=== PATIENT | male | born 1960 | race Caucasian/White ===

== ENCOUNTER 2016-04-25 11:53 | Inpatient (IN) | payer OTHER ==
[~2016-04-25] VITALS: Ht 170.2 cm; Wt 55.7 kg
[~2016-04-25 11:53] MED LIST: ADDERALL XR 3030 MG PO; ADVAIR HFA120 INHALA IH; AMITRIPTYLINE H25 MG PO; AMITRIPTYLINE H50 MG PO; AMPHETAMINE SAL20 MG PO; ANIMAL CHEWS1 EACH PO; ANTIVERT25 MG PO; ASPIR 8181 M1 PO; ASPIR-LOW81 MG PO; ATARAX,VISTARIL50 MG PO; ATORVASTATIN CA20 MG PO; AUGMENTIN875 MG PO; B-1100 MG PO; BACTRIM,SEPT1 TABLET PO; BENTYL10 MG PO; BUSPAR15 MG PO; BUSPIRONE HCL15 MG PO; CARAFATE1 GM PO; CARAFATE100 MG/ML PO; CEFDINIR300 MG PO; CHLORDIAZEPOXID25 MG PO; CHLORDIAZEPOXIDE5 MG PO; CIALIS5 MG PO; CLEOCIN300 MG PO; CLONIDINE HCL0.1 MG PO; CLONIDINE HCL0.2 MG PO; DICLOFENAC POTA50 MG PO; DICLOFENAC SODI75 MG PO; DOCUSATE SODIU100 MG PO; DOXYCYCLINE HY100 MG PO; DOXYCYCLINE MO100 MG PO; ELAVIL25 MG PO; ELAVIL50 MG PO; ENDOCET 5-3251 EACH PO; FAMOTIDINE20 MG PO; FAMOTIDINE40 MG PO; FLEXERIL10 MG PO; FOLIC ACID1 MG PO; GABAPENTIN100 MG PO; GABAPENTIN600 MG PO; HYDROXYZINE PAM25 MG PO; IMODIUM MS REL1 EACH PO; INDERAL20 MG PO; K-DUR10 MEQ PO; K-DUR20 MEQ PO; KEFLEX500 MG PO; KEPPRA500 MG PO; LEVAQUIN750 MG PO; LEVETIRACETAM500 MG PO; LIBRIUM10 MG PO; LIBRIUM25 MG PO; LIBRIUM5 MG PO; LIDODERM 5% P1 PATCH TD; LOPERAMIDE2 MG PO; MAG-AL PLUS SUS30 ML PO; METHOCARBAMOL500 MG PO; METOCLOPRAMIDE H5 MG PO; METOPROLOL SUC100 MG PO; METOPROLOL SUCC25 MG PO; METOPROLOL SUCC50 MG PO; MIRALAX17 GM PO; MOBIC15 MG PO; NAPROSYN500 MG PO; NEURONTIN400 MG PO; NEURONTIN600 MG PO; NICOTINE PATCH1 EAC2 TD; NORCO 5/3251 TABLET PO; OMEPRAZOLE20 MG PO; OMEPRAZOLE40 M1 PO; ONDANSETRON ODT8 MG PO; OXYCODONE HCL10 MG PO; OXYCODONE-APAP1 EACH PO; PANTOPRAZOLE SO40 MG PO; PERCOCET 10/1 TABLET PO; PERCOCET 5/31 TABLET PO; POTASSIUM CHLO20 ME1 PO; PRAVASTATIN SOD40 MG PO; PRISTIQ100 MG PO; PRISTIQ50 MG PO; PROPRANOLOL HCL20 MG PO; PROPRANOLOL HCL40 MG PO; PROTONIX40 MG PO; THERAGRAN1 TABLET PO; THIAMINE HCL100 MG PO; TRAMADOL HCL50 MG PO; TYLENOL REGULA325 MG PO; Thiamine,Vitamin B1 PO; ULTRAM50 MG PO; VALIUM2 MG PO; VENTOLIN HFA18 GM IH; VICODIN 5-3001 EACH PO; VITAMIN B-1100 MG PO; VOLTAREN50 MG PO; VOLTAREN75 MG PO; VYVANSE40 MG PO; VYVANSE70 MG PO; ZANTAC150 MG PO; ZOFRAN ODT4 MG PO; ZOFRAN ODT8 MG PO
[2016-04-25 15:40] LABS: HEMATOCRIT 40.5 % (38.0-50.0); MCH 29.2 PG (29.0-34.0); MCHC 32.3 G/DL (30.0-36.0); MCV 90.4 FL (86-99); MEAN PLAT.VOLUME 11.1 uM^3 (9.0-12.4); PLATELET COUNT 239 K/uL (156-360); RBC DIS.WIDTH-CV 14.7 % (11.8-14.6); RBC DIS.WIDTH-SD 47.3 % (39-53); RED BLOOD COUNT 4.48 M/uL (4.00-5.50); WHITE BLOOD COUNT 3.9 K/uL (4.1-10.2)
[2016-04-25 15:47] LABS: CHLORIDE 108 mEq/L (99-109); POTASSIUM 3.7 mEq/L (3.7-5.4); SODIUM 142 mEq/L (136-147)
[2016-04-25 15:49] LABS: GLUCOSE 108 mg/dL (70-99)
[2016-04-25 15:50] LABS: ANION GAP 10 MEQ/L (2-14)
[2016-04-25 15:52] LABS: SERUM ETHYL ALCOHOL < 10 mg/dL
[2016-04-25 15:53] LABS: GFR ESTIMATE (CALCULATED) 56 mL/min/
[2016-04-25 15:54] LABS: UREA NITROGEN (BUN) 23 mg/dL (9-23)
[2016-04-25] MEDS ORDERED: GABAPENTIN600 MG PO (22:35)
[2016-04-25] MEDS ORDERED: LEVETIRACETAM500 MG PO (22:35)
[2016-04-25] MEDS ORDERED: AMITRIPTYLINE H50 MG PO (22:35)
[2016-04-25] MEDS ORDERED: CLONIDINE HCL0.1 MG PO (22:35)
[2016-04-26 00:12] LABS: MAGNESIUM 2.1 mg/dL (1.3-2.7)
[2016-04-26 01:12] VITALS: BP 141/92
[2016-04-26 03:56] VITALS: BP 119/77
[2016-04-26 05:24] LABS: HEMATOCRIT 32.6 % (38.0-50.0); MCH 29.4 PG (29.0-34.0); MCHC 32.2 G/DL (30.0-36.0); MCV 91.3 FL (86-99); MEAN PLAT.VOLUME 10.5 uM^3 (9.0-12.4); PLATELET COUNT 203 K/uL (156-360); RBC DIS.WIDTH-CV 14.5 % (11.8-14.6); RBC DIS.WIDTH-SD 46.9 % (39-53); RED BLOOD COUNT 3.57 M/uL (4.00-5.50); WHITE BLOOD COUNT 4.3 K/uL (4.1-10.2)
[2016-04-26 05:26] LABS: CHLORIDE 115 mEq/L (99-109); POTASSIUM 3.4 mEq/L (3.7-5.4); SODIUM 143 mEq/L (136-147)
[2016-04-26 05:28] LABS: GLUCOSE 85 mg/dL (70-99)
[2016-04-26 05:29] LABS: ANION GAP 7 MEQ/L (2-14)
[2016-04-26 05:32] LABS: GFR ESTIMATE (CALCULATED) > 59 mL/min/; UREA NITROGEN (BUN) 15 mg/dL (9-23)
[2016-04-26 08:24] VITALS: BP 138/95
[2016-04-26 09:04] LABS: MAGNESIUM 1.9 mg/dl (1.3-2.7)
[2016-04-26 12:04] VITALS: BP 136/85
[2016-04-26] MEDS ORDERED: ADDERALL XR 3030 MG PO (12:18)
[2016-04-26] MEDS ORDERED: LO-DOSE ASPIRIN81 M1 PO (12:18)
[2016-04-26] MEDS ORDERED: ELAVIL100 MG PO (12:18)
[2016-04-26] MEDS ORDERED: DICLOFENAC SODI75 MG PO (12:18)
[2016-04-26] MEDS ORDERED: PRAVACHOL40 MG PO (12:19)
[2016-04-26 16:08] LABS: ALKALINE PHOSPHATASE 66 IU/L (3-129); DIRECT BILIRUBIN 0.1 mg/dL (0.0-0.3); TOTAL BILIRUBIN 0.3 MG/DL (0.0-1.0)
[2016-04-26 16:31] VITALS: BP 135/85
[2016-04-26 20:44] VITALS: BP 131/88
[2016-04-27 00:38] VITALS: BP 151/69
[2016-04-27 05:16] VITALS: BP 138/74
[2016-04-27 06:52] LABS: HEMATOCRIT 32.9 % (38.0-50.0); MCH 29.9 PG (29.0-34.0); MCHC 31.9 G/DL (30.0-36.0); MCV 93.7 FL (86-99); MEAN PLAT.VOLUME 11.4 uM^3 (9.0-12.4); PLATELET COUNT 192 K/uL (156-360); RBC DIS.WIDTH-CV 14.6 % (11.8-14.6); RBC DIS.WIDTH-SD 49.5 % (39-53); RED BLOOD COUNT 3.51 M/uL (4.00-5.50); WHITE BLOOD COUNT 5.2 K/uL (4.1-10.2)
[2016-04-27 07:15] LABS: ANION GAP 11 MEQ/L (2-14); CHLORIDE 106 MEQ/L (99-109); GFR ESTIMATE (CALCULATED) > 59 mL/min/; GLUCOSE 96 mg/dL (70-99); SAMPLE HEMOLYSIS CHECK 0; SAMPLE ICTERIC CHECK 0; SAMPLE LIPEMIA CHECK 0; SODIUM 143 MEQ/L (136-147); UREA NITROGEN (BUN) 15 mg/dL (9-23)
[2016-04-27 07:21] LABS: POTASSIUM 4.4 MEQ/L (3.7-5.4)
[2016-04-27 07:47] VITALS: BP 136/85
[2016-04-27 16:33] VITALS: BP 124/81
[2016-04-27 23:45] VITALS: BP 131/79
[2016-04-28 06:57] LABS: HEMATOCRIT 33.3 % (38.0-50.0); MCH 29.7 PG (29.0-34.0); MCHC 31.5 G/DL (30.0-36.0); MCV 94.1 FL (86-99); MEAN PLAT.VOLUME 11.9 uM^3 (9.0-12.4); PLATELET COUNT 173 K/uL (156-360); RBC DIS.WIDTH-CV 14.8 % (11.8-14.6); RBC DIS.WIDTH-SD 50.9 % (39-53); RED BLOOD COUNT 3.54 M/uL (4.00-5.50)
[2016-04-28 06:58] LABS: WHITE BLOOD COUNT 7.3 K/uL (4.1-10.2)
[2016-04-28 07:26] LABS: ANION GAP 6 MEQ/L (2-14); CHLORIDE 108 MEQ/L (99-109); GFR ESTIMATE (CALCULATED) > 59 mL/min/; GLUCOSE 109 mg/dL (70-99); SAMPLE HEMOLYSIS CHECK 0; SAMPLE ICTERIC CHECK 0; SAMPLE LIPEMIA CHECK 0; SODIUM 138 MEQ/L (136-147); UREA NITROGEN (BUN) 14 mg/dL (9-23)
[2016-04-28 07:37] VITALS: BP 112/77
[2016-04-28 16:15] VITALS: BP 135/90
[2016-04-28 23:21] VITALS: BP 139/90
[2016-04-29 06:13] LABS: HEMATOCRIT 34.5 % (38.0-50.0); MCH 29.4 PG (29.0-34.0); MCHC 31.9 G/DL (30.0-36.0); MCV 92.2 FL (86-99); MEAN PLAT.VOLUME 11.3 uM^3 (9.0-12.4); PLATELET COUNT 172 K/uL (156-360); RBC DIS.WIDTH-CV 14.5 % (11.8-14.6); RBC DIS.WIDTH-SD 49.1 % (39-53); RED BLOOD COUNT 3.74 M/uL (4.00-5.50); WHITE BLOOD COUNT 8.8 K/uL (4.1-10.2)
[2016-04-29 06:40] LABS: ANION GAP 5 MEQ/L (2-14); CHLORIDE 107 MEQ/L (99-109); GFR ESTIMATE (CALCULATED) > 59 mL/min/; GLUCOSE 100 mg/dL (70-99); POTASSIUM 3.8 MEQ/L (3.7-5.4); SAMPLE HEMOLYSIS CHECK 0; SAMPLE ICTERIC CHECK 0; SAMPLE LIPEMIA CHECK 0; SODIUM 140 MEQ/L (136-147); UREA NITROGEN (BUN) 10 mg/dL (9-23)
[2016-04-29 08:26] VITALS: BP 127/86
[2016-04-29 15:53] VITALS: BP 145/97
[2016-04-29 20:30] VITALS: BP 125/74
[2016-04-30] VITALS: BP 128/74
[2016-04-30 04:00] VITALS: BP 132/78
[2016-04-30 08:26] VITALS: BP 168/95
[2016-04-30 16:25] VITALS: BP 150/91
[2016-04-30] MEDS ORDERED: FOLIC ACID1 MG PO (17:55)
[2016-04-30] MEDS ORDERED: LEVETIRACETAM500 MG PO (17:55)
[2016-04-30] MEDS ORDERED: ENDOCET 5-3251 EACH PO (17:55)
[2016-04-30] MEDS ORDERED: THERAGRAN1 TABLET PO (17:55)
[2016-04-30] MEDS ORDERED: Thiamine,Vitamin B1 PO (17:55)
[2016-04-30] MEDS ORDERED: ATIVAN2 MG PO (17:59)
[2016-04-30] MEDS ORDERED: LO-DOSE ASPIRIN81 M1 PO (18:05)
[2016-04-30] MEDS ORDERED: CLONIDINE HCL0.1 MG PO (18:05)
[2016-04-30] MEDS ORDERED: PRAVACHOL40 MG PO (18:05)
[2016-04-30 23:39] VITALS: BP 152/88
[2016-05-01 08:53] VITALS: BP 143/99
== END 2016-05-01 12:57 | disposition home or self-care (01) | DRG 641 ==
LOC: EME → EDBD 11:53 → EME 11:53 → EDOF 16:34 → 3EAST 16:34
PROVIDERS: Emergency Medicine; Internal Medicine Critical Care Medicine; Physician Assistant
DX: E51.2 Wernicke's encephalopathy (principal); F10.231 Alcohol dependence with withdrawal delirium; R29.6 Repeated falls; R27.0 Ataxia, unspecified; E87.6 Hypokalemia; I25.810 Atherosclerosis of coronary artery bypass graft(s) without angina pectoris; I10 Essential (primary) hypertension; J44.9 Chronic obstructive pulmonary disease, unspecified; F17.200 Nicotine dependence, unspecified, uncomplicated; F33.9 Major depressive disorder, recurrent, unspecified; N17.9 Acute kidney failure, unspecified; L97.829 Non-pressure chronic ulcer of other part of left lower leg with unspecified severity; M86.672 Other chronic osteomyelitis, left ankle and foot; Z89.422 Acquired absence of other left toe(s); F17.210 Nicotine dependence, cigarettes, uncomplicated; F43.10 Post-traumatic stress disorder, unspecified; G62.9 Polyneuropathy, unspecified; E78.5 Hyperlipidemia, unspecified; G40.909 Epilepsy, unspecified, not intractable, without status epilepticus; G89.29 Other chronic pain; M54.9 Dorsalgia, unspecified; T33.832S Superficial frostbite of left toe(s), sequela
CPT/HCPCS: 70450; 80048; 80076; 82140; 83735; 85027; 97530 GP; 99281; 99285; G0480; J1650; J2060; J3360; J3411; J3475; J7030; J7050; J7120

== ENCOUNTER 2016-05-19 10:58 | Emergency (ER) | payer OTHER ==
[~2016-05-19] VITALS: Ht 170.2 cm; Wt 49.8 kg
[~2016-05-19 10:58] MED LIST changes: +ATIVAN2 MG PO; +ELAVIL100 MG PO; +LO-DOSE ASPIRIN81 M1 PO; +PRAVACHOL40 MG PO
[2016-05-19 11:27] LABS: BASOPHIL COUNT 0.1 K/uL (0-0.1); EOSINOPHIL (%) 3.3 % (0-5); EOSINOPHIL COUNT 0.2 K/uL (0-0.3); HEMATOCRIT 40.7 % (38.0-50.0); IMMATURE GRANULOCYTE (%) 0.4 % (0.0-0.7); IMMATURE GRANULOCYTE COUNT 0.2 K/uL; LYMPHOCYTE COUNT 1.6 K/uL (1.0-2.8); MCH 29.9 PG (29.0-34.0); MCHC 33.9 G/DL (30.0-36.0); MCV 88.1 FL (86-99); MEAN PLAT.VOLUME 10.9 uM^3 (9.0-12.4); MONOCYTE (%) 6.3 % (3-12); MONOCYTE COUNT 0.3 K/uL (0-0.8); NEUTROPHIL (%) 58.1 % (45-76); PLATELET COUNT 302 K/uL (156-360); RBC DIS.WIDTH-CV 14.8 % (11.8-14.6); RBC DIS.WIDTH-SD 46.7 % (39-53); RED BLOOD COUNT 4.62 M/uL (4.00-5.50); WHITE BLOOD COUNT 5.1 K/uL (4.1-10.2)
[2016-05-19 11:35] LABS: CHLORIDE 109 mEq/L (99-109); POTASSIUM 3.3 mEq/L (3.7-5.4); SODIUM 145 mEq/L (136-147)
[2016-05-19 11:37] LABS: GLUCOSE 91 mg/dL (70-99)
[2016-05-19 11:38] LABS: ANION GAP 17 MEQ/L (2-14)
[2016-05-19 11:40] LABS: SERUM ETHYL ALCOHOL 150 mg/dL
[2016-05-19 11:41] LABS: GFR ESTIMATE (CALCULATED) > 59 mL/min/
[2016-05-19 11:42] LABS: UREA NITROGEN (BUN) 13 mg/dL (9-23)
[2016-05-19 13:40] LABS: BILIRUBIN NEGATIVE; BLOOD NEGATIVE; COLOR YELLOW ((YELLOW)); GLUCOSE (STRIP) NEGATIVE; KETONES NEGATIVE; LEUKOCYTES NEGATIVE; NITRITE NEGATIVE; PROTEIN (STRIP) NEGATIVE; SPECIFIC GRAVITY 1.009 (1.000-1.030)
[2016-05-19 13:46] LABS: ADD MIUA? NO
[2016-05-19 14:02] LABS: AMPHETAMINE PRESUMPTIVE POSITIVE (500 ng/mL); BARBITURATES NEGATIVE (200 ng/mL); BENZODIAZEPINES NEGATIVE (150 ng/mL); COCAINE NEGATIVE (150 ng/mL); INTERNAL CONTROLS VALID? YES; METHADONE NEGATIVE (200 ng/mL); METHAMPHETAMINE NEGATIVE (500 ng/mL); OPIATES (MORPHINE) NEGATIVE (100 ng/mL); OXYCODONE NEGATIVE (100 ng/mL); PHENCYCLIDINE NEGATIVE (25 ng/mL); PROPOXYPHENE NEGATIVE (300 ng/mL); THC CANNABINOIDS NEGATIVE (50 ng/mL); TRICYCLIC ANTIDEPRESSANTS PRESUMPTIVE POSITIVE (300 ng/mL)
[2016-05-19 14:03] LABS: ADD MEDTOX COMMENT Y
[2016-05-19 14:28] VITALS: BP 119/84
== END 2016-05-19 14:28 | disposition home or self-care (01) ==
LOC: EME → EDBD 10:58 → EME 10:58
PROVIDERS: Emergency Medicine
DX: F41.9 Anxiety disorder, unspecified (principal); F32.9 Major depressive disorder, single episode, unspecified; F10.20 Alcohol dependence, uncomplicated; J43.9 Emphysema, unspecified; J44.9 Chronic obstructive pulmonary disease, unspecified; E78.5 Hyperlipidemia, unspecified; I10 Essential (primary) hypertension; F17.200 Nicotine dependence, unspecified, uncomplicated; Z79.82 Long term (current) use of aspirin; Z95.5 Presence of coronary angioplasty implant and graft; Z88.6 Allergy status to analgesic agent
CPT/HCPCS: 80048; 81003; 84999; 85025; 90839; 99281; 99284; G0480

== ENCOUNTER 2016-06-25 13:22 | Emergency (ER) | payer OTHER ==
[~2016-06-25] VITALS: Ht 177.8 cm; Wt 51.4 kg
[2016-06-25 14:00] LABS: POINT-OF-CARE METER ID UU13113702
[2016-06-25 15:42] LABS: HEMATOCRIT 39.2 % (38.0-50.0); MCH 29.9 PG (29.0-34.0); MCHC 32.1 G/DL (30.0-36.0); MCV 93.1 FL (86-99); MEAN PLAT.VOLUME 10.4 uM^3 (9.0-12.4); PLATELET COUNT 239 K/uL (156-360); RBC DIS.WIDTH-CV 15.1 % (11.8-14.6); RBC DIS.WIDTH-SD 49.3 % (39-53); RED BLOOD COUNT 4.21 M/uL (4.00-5.50); WHITE BLOOD COUNT 5.6 K/uL (4.1-10.2)
[2016-06-25 15:57] LABS: CHLORIDE 107 mEq/L (99-109); POTASSIUM 4.3 mEq/L (3.7-5.4); SODIUM 141 mEq/L (136-147)
[2016-06-25 15:59] LABS: GLUCOSE 83 mg/dL (70-99)
[2016-06-25 16:00] LABS: ANION GAP 9 MEQ/L (2-14)
[2016-06-25 16:02] LABS: SERUM ETHYL ALCOHOL < 10 mg/dL
[2016-06-25 16:03] LABS: GFR ESTIMATE (CALCULATED) > 59 mL/min/; UREA NITROGEN (BUN) 14 mg/dL (9-23)
[2016-06-25 17:35] LABS: ADD MIUA? NO; BILIRUBIN NEGATIVE; BLOOD NEGATIVE; COLOR YELLOW ((YELLOW)); GLUCOSE (STRIP) NEGATIVE; KETONES NEGATIVE; LEUKOCYTES NEGATIVE; NITRITE NEGATIVE; PROTEIN (STRIP) 30; SPECIFIC GRAVITY 1.018 (1.000-1.030); UROBILINOGEN 0.2 MG/DL (0.2-1.0)
[2016-06-25 17:43] LABS: AMPHETAMINE PRESUMPTIVE POSITIVE (500 ng/mL); BARBITURATES NEGATIVE (200 ng/mL); BENZODIAZEPINES NEGATIVE (150 ng/mL); COCAINE NEGATIVE (150 ng/mL); METHADONE NEGATIVE (200 ng/mL); METHAMPHETAMINE NEGATIVE (500 ng/mL); OPIATES (MORPHINE) NEGATIVE (100 ng/mL); OXYCODONE NEGATIVE (100 ng/mL); PHENCYCLIDINE NEGATIVE (25 ng/mL); PROPOXYPHENE NEGATIVE (300 ng/mL); THC CANNABINOIDS NEGATIVE (50 ng/mL); TRICYCLIC ANTIDEPRESSANTS PRESUMPTIVE POSITIVE (300 ng/mL)
[2016-06-25 17:44] LABS: ADD MEDTOX COMMENT Y; INTERNAL CONTROLS VALID? YES
[2016-06-25] MEDS ORDERED: CLONIDINE HCL0.1 MG PO (18:20)
[2016-06-25] MEDS ORDERED: KEPPRA500 MG PO (18:20)
[2016-06-25 18:51] VITALS: BP 147/103
== END 2016-06-25 19:02 | disposition home or self-care (01) ==
LOC: EME → EDBD 13:22 → EME 13:22
PROVIDERS: Emergency Medicine
DX: F10.10 Alcohol abuse, uncomplicated (principal); I10 Essential (primary) hypertension; G40.909 Epilepsy, unspecified, not intractable, without status epilepticus; F15.10 Other stimulant abuse, uncomplicated; J44.9 Chronic obstructive pulmonary disease, unspecified; E78.5 Hyperlipidemia, unspecified; Z87.442 Personal history of urinary calculi; Z95.1 Presence of aortocoronary bypass graft; Z85.038 Personal history of other malignant neoplasm of large intestine; F17.200 Nicotine dependence, unspecified, uncomplicated
CPT/HCPCS: 80048; 81003; 82948; 84999; 85027; 99281; 99285; G0480

== ENCOUNTER 2016-07-18 16:18 | Emergency (ER) | payer OTHER ==
[~2016-07-18] VITALS: Ht 170.2 cm; Wt 56.0 kg
[2016-07-18 17:09] LABS: BASOPHIL COUNT 0.1 K/uL (0-0.1); EOSINOPHIL (%) 1.7 % (0-5); EOSINOPHIL COUNT 0.1 K/uL (0-0.3); HEMATOCRIT 37.8 % (38.0-50.0); IMMATURE GRANULOCYTE (%) 0.6 % (0.0-0.7); INSTRUMENT ABS NEUTROPHIL CT 3.9 K/uL; MCH 29.6 PG (29.0-34.0); MCHC 31.7 G/DL (30.0-36.0); MCV 93.1 FL (86-99); MONOCYTE (%) 4.2 % (3-12); MONOCYTE COUNT 0.2 K/uL (0-0.8); NEUTROPHIL (%) 73.8 % (45-76); NEUTROPHIL COUNT 3.9 K/uL (1.8-6.4); PLATELET COUNT 225 K/uL (156-360); RBC DIS.WIDTH-CV 14.3 % (11.8-14.6); RBC DIS.WIDTH-SD 48.6 % (39-53); RED BLOOD COUNT 4.06 M/uL (4.00-5.50); WHITE BLOOD COUNT 5.2 K/uL (4.1-10.2)
[2016-07-18 17:20] LABS: CHLORIDE 105 mEq/L (99-109); POTASSIUM 3.7 mEq/L (3.7-5.4); SODIUM 138 mEq/L (136-147)
[2016-07-18 17:23] LABS: GLUCOSE 79 mg/dL (70-99)
[2016-07-18 17:24] LABS: ANION GAP 11 MEQ/L (2-14)
[2016-07-18 17:25] LABS: TOTAL BILIRUBIN 0.4 mg/dL (0.0-1.0)
[2016-07-18 17:26] LABS: ALKALINE PHOSPHATASE 74 IU/L (3-129); SERUM ETHYL ALCOHOL < 10 mg/dL
[2016-07-18 17:27] LABS: GFR ESTIMATE (CALCULATED) > 59 mL/min/
[2016-07-18 17:28] LABS: UREA NITROGEN (BUN) 18 mg/dL (9-23)
[2016-07-18 20:35] LABS: AMPHETAMINE PRESUMPTIVE POSITIVE (500 ng/mL); BARBITURATES NEGATIVE (200 ng/mL); BENZODIAZEPINES NEGATIVE (150 ng/mL); COCAINE NEGATIVE (150 ng/mL); INTERNAL CONTROLS VALID? YES; METHADONE NEGATIVE (200 ng/mL); METHAMPHETAMINE NEGATIVE (500 ng/mL); OPIATES (MORPHINE) NEGATIVE (100 ng/mL); OXYCODONE NEGATIVE (100 ng/mL); PHENCYCLIDINE NEGATIVE (25 ng/mL); PROPOXYPHENE NEGATIVE (300 ng/mL); THC CANNABINOIDS NEGATIVE (50 ng/mL); TRICYCLIC ANTIDEPRESSANTS NEGATIVE (300 ng/mL)
[2016-07-18 20:36] LABS: ADD MEDTOX COMMENT Y
[2016-07-18] MEDS ORDERED: LIBRIUM25 MG PO (20:59)
[2016-07-18 21:33] VITALS: BP 143/103
== END 2016-07-18 21:35 | disposition home or self-care (01) ==
LOC: EME 16:18
PROVIDERS: Emergency Medicine
DX: F10.20 Alcohol dependence, uncomplicated (principal); M50.90 Cervical disc disorder, unspecified, unspecified cervical region; R45.1 Restlessness and agitation; R51 Headache; I10 Essential (primary) hypertension; R00.0 Tachycardia, unspecified; Z91.81 History of falling; Z95.1 Presence of aortocoronary bypass graft; F17.200 Nicotine dependence, unspecified, uncomplicated
CPT/HCPCS: 70450; 72125; 80053; 84999; 85025; 99281; 99284; G0480; J3411; J3475; J7030

== ENCOUNTER 2016-07-20 22:04 | Inpatient (IN) | payer OTHER ==
[~2016-07-20] VITALS: Ht 170.2 cm; Wt 52.7 kg
[2016-07-20 23:34] LABS: HEMATOCRIT 38.5 % (38.0-50.0); MCH 30.2 PG (29.0-34.0); MCHC 32.5 G/DL (30.0-36.0); MEAN PLAT.VOLUME 10.7 uM^3 (9.0-12.4); PLATELET COUNT 208 K/uL (156-360); RBC DIS.WIDTH-CV 14.6 % (11.8-14.6); RBC DIS.WIDTH-SD 49.2 % (39-53); RED BLOOD COUNT 4.14 M/uL (4.00-5.50); WHITE BLOOD COUNT 9.8 K/uL (4.1-10.2)
[2016-07-20 23:41] LABS: PROTHROMBIN TIME 10.4 (9.2-11.2); PTT 26.4 (25-32)
[2016-07-20 23:46] LABS: CHLORIDE 108 mEq/L (99-109); POTASSIUM 3.5 mEq/L (3.7-5.4); SODIUM 139 mEq/L (136-147)
[2016-07-20 23:48] LABS: GLUCOSE 90 mg/dL (70-99)
[2016-07-20 23:49] LABS: ANION GAP 11 MEQ/L (2-14)
[2016-07-20 23:50] LABS: TOTAL BILIRUBIN 0.7 mg/dL (0.0-1.0)
[2016-07-20 23:51] LABS: ALKALINE PHOSPHATASE 95 IU/L (3-129); SERUM ETHYL ALCOHOL < 10 mg/dL
[2016-07-20 23:52] LABS: GFR ESTIMATE (CALCULATED) > 59 mL/min/
[2016-07-20 23:53] LABS: UREA NITROGEN (BUN) 22 mg/dL (9-23)
[2016-07-20 23:55] LABS: TOTAL CK 2022 IU/L (1-294)
[2016-07-20 23:56] LABS: ADD MIUA? YES; BILIRUBIN SMALL; BLOOD NEGATIVE; GLUCOSE (STRIP) NEGATIVE; KETONES 20; LEUKOCYTES NEGATIVE; NITRITE NEGATIVE; PROTEIN (STRIP) 30; SPECIFIC GRAVITY 1.028 (1.000-1.030)
[2016-07-20 23:57] LABS: TROP-I INTERPRETATION NEGATIVE; TROPONIN-I < 0.01 ng/mL (0.0-0.30)
[2016-07-21 00:03] LABS: CREATINE KINASE 2022 IU/L (1-294); LIPASE 1 U/L (1.0-51.0)
[2016-07-21 00:12] LABS: AMPHETAMINE PRESUMPTIVE POSITIVE (500 ng/mL); BENZODIAZEPINES PRESUMPTIVE POSITIVE (150 ng/mL); COCAINE NEGATIVE (150 ng/mL); METHAMPHETAMINE NEGATIVE (500 ng/mL); OPIATES (MORPHINE) NEGATIVE (100 ng/mL); PHENCYCLIDINE NEGATIVE (25 ng/mL); THC CANNABINOIDS NEGATIVE (50 ng/mL); TRICYCLIC ANTIDEPRESSANTS PRESUMPTIVE POSITIVE (300 ng/mL)
[2016-07-21 00:13] LABS: ADD MEDTOX COMMENT Y; BARBITURATES NEGATIVE (200 ng/mL); INTERNAL CONTROLS VALID? YES; METHADONE NEGATIVE (200 ng/mL); OXYCODONE NEGATIVE (100 ng/mL); PROPOXYPHENE NEGATIVE (300 ng/mL)
[2016-07-21 00:30] LABS: COLOR DK YELLOW ((YELLOW))
[2016-07-21 00:47] LABS: BACTERIA 1+ /HPF; EPITHELIAL CELLS 1+ /HPF; MUCUS 4+ /LPF; UCUL ADDED? NO; WHITE BLOOD CELLS NONE SEEN /HPF (0-5)
[2016-07-21 00:48] LABS: CASTS PRESENT /LPF
[2016-07-21 01:01] LABS: BENZODIAZEPINES, URINE SCREEN POSITIVE (200 ng/mL)
[2016-07-21 04:28] LABS: C DIFF TOXIN POSITIVE (NEGATIVE)
[2016-07-21 04:32] LABS: PROBE CHECK PASS
[2016-07-21 05:20] VITALS: BP 160/103
[2016-07-21 08:03] VITALS: BP 152/98
[2016-07-21 08:26] VITALS: BP 152/98
[2016-07-21 09:04] LABS: HEMATOCRIT 32.9 % (38.0-50.0); MCH 29.8 PG (29.0-34.0); MCHC 31.3 G/DL (30.0-36.0); MCV 95.1 FL (86-99); MEAN PLAT.VOLUME 11.1 uM^3 (9.0-12.4); PLATELET COUNT 160 K/uL (156-360); RBC DIS.WIDTH-CV 14.8 % (11.8-14.6); RBC DIS.WIDTH-SD 51.6 % (39-53); RED BLOOD COUNT 3.46 M/uL (4.00-5.50); WHITE BLOOD COUNT 8.3 K/uL (4.1-10.2)
[2016-07-21 09:16] LABS: ANION GAP 8 MEQ/L (2-14); CHLORIDE 113 MEQ/L (99-109); GFR ESTIMATE (CALCULATED) > 59 mL/min/; GLUCOSE 75 mg/dL (70-99); MAGNESIUM 1.9 mg/dl (1.3-2.7); POTASSIUM 3.4 MEQ/L (3.7-5.4); SAMPLE HEMOLYSIS CHECK 0; SAMPLE ICTERIC CHECK 0; SAMPLE LIPEMIA CHECK 0; SODIUM 141 MEQ/L (136-147); UREA NITROGEN (BUN) 15 mg/dL (9-23)
[2016-07-21 12:11] LABS: HIV INDEX 0.07; HIV-1/2 AB/AG COMBO Nonreactive
[2016-07-21] MEDS ORDERED: KEPPRA500 MG PO (15:46)
[2016-07-21] MEDS ORDERED: GABAPENTIN600 MG PO (15:47)
[2016-07-21] MEDS ORDERED: ELAVIL100 MG PO (15:47)
[2016-07-21] MEDS ORDERED: CATAPRES0.1 MG PO (15:47)
[2016-07-21] MEDS ORDERED: LIBRIUM25 MG PO (15:47)
[2016-07-21] MEDS ORDERED: ADDERALL XR 3030 MG PO (15:48)
[2016-07-21] MEDS ORDERED: PRISTIQ100 MG PO (15:49)
[2016-07-21] MEDS ORDERED: FOLIC ACID1 MG PO (15:49)
[2016-07-21 16:00] VITALS: BP 155/102
[2016-07-21 18:16] VITALS: BP 130/90
[2016-07-22 00:02] VITALS: BP 160/91
[2016-07-22 06:03] LABS: HEMATOCRIT 31.5 % (38.0-50.0); MCH 29.8 PG (29.0-34.0); MCHC 31.7 G/DL (30.0-36.0); MCV 93.8 FL (86-99); MEAN PLAT.VOLUME 11.3 uM^3 (9.0-12.4); PLATELET COUNT 172 K/uL (156-360); RBC DIS.WIDTH-CV 14.1 % (11.8-14.6); RBC DIS.WIDTH-SD 48.7 % (39-53); RED BLOOD COUNT 3.36 M/uL (4.00-5.50); WHITE BLOOD COUNT 7.8 K/uL (4.1-10.2)
[2016-07-22 06:49] LABS: ANION GAP 7 MEQ/L (2-14); CHLORIDE 109 MEQ/L (99-109); GFR ESTIMATE (CALCULATED) > 59 mL/min/; GLUCOSE 81 mg/dL (70-99); POTASSIUM 3.4 MEQ/L (3.7-5.4); SAMPLE HEMOLYSIS CHECK 0; SAMPLE ICTERIC CHECK 0; SAMPLE LIPEMIA CHECK 0; SODIUM 139 MEQ/L (136-147); TOTAL CK 1318 IU/L (1-294); UREA NITROGEN (BUN) 9 mg/dL (9-23)
[2016-07-22 06:51] LABS: CREATINE KINASE 1318 IU/L (1-294)
[2016-07-22 07:12] LABS: CK-MB 10.7 ng/mL (0.0-4.9)
[2016-07-22 08:15] VITALS: BP 154/80
[2016-07-22 15:36] VITALS: BP 152/84
[2016-07-23 05:45] LABS: HEMATOCRIT 30.5 % (38.0-50.0); MCHC 32.1 G/DL (30.0-36.0); MCV 93.3 FL (86-99); MEAN PLAT.VOLUME 11.5 uM^3 (9.0-12.4); PLATELET COUNT 199 K/uL (156-360); RBC DIS.WIDTH-CV 14.1 % (11.8-14.6); RBC DIS.WIDTH-SD 48.4 % (39-53); RED BLOOD COUNT 3.27 M/uL (4.00-5.50); WHITE BLOOD COUNT 8.1 K/uL (4.1-10.2)
[2016-07-23 07:25] LABS: ANION GAP 9 MEQ/L (2-14); CHLORIDE 107 MEQ/L (99-109); CREATINE KINASE 671 IU/L (1-294); GFR ESTIMATE (CALCULATED) > 59 mL/min/; GLUCOSE 97 mg/dL (70-99); POTASSIUM 3.4 MEQ/L (3.7-5.4); SAMPLE HEMOLYSIS CHECK 0; SAMPLE ICTERIC CHECK 0; SAMPLE LIPEMIA CHECK 0; SODIUM 139 MEQ/L (136-147); UREA NITROGEN (BUN) 10 mg/dL (9-23)
[2016-07-23 08:28] VITALS: BP 150/75
[2016-07-23 12:05] VITALS: BP 150/82
[2016-07-23 16:11] LABS: MAGNESIUM 1.9 mg/dl (1.3-2.7)
[2016-07-23 16:22] VITALS: BP 130/79
[2016-07-23 23:34] VITALS: BP 125/99
[2016-07-24 08:31] VITALS: BP 128/78
[2016-07-24 09:28] LABS: EOSINOPHIL (%) 4.5 % (0-5); EOSINOPHIL COUNT 0.3 K/uL (0-0.3); HEMATOCRIT 35.7 % (38.0-50.0); IMMATURE GRANULOCYTE (%) 0.9 % (0.0-0.7); IMMATURE GRANULOCYTE COUNT 0.1 K/uL; INSTRUMENT ABS NEUTROPHIL CT 3.9 K/uL; MCH 29.4 PG (29.0-34.0); MCHC 31.1 G/DL (30.0-36.0); MCV 94.4 FL (86-99); MEAN PLAT.VOLUME 11.1 uM^3 (9.0-12.4); MONOCYTE (%) 10.3 % (3-12); MONOCYTE COUNT 0.6 K/uL (0-0.8); NEUTROPHIL (%) 67.2 % (45-76); NEUTROPHIL COUNT 3.9 K/uL (1.8-6.4); PLATELET COUNT 204 K/uL (156-360); RBC DIS.WIDTH-CV 14.4 % (11.8-14.6); RED BLOOD COUNT 3.78 M/uL (4.00-5.50); WHITE BLOOD COUNT 5.7 K/uL (4.1-10.2)
[2016-07-24 09:50] LABS: ANION GAP 5 MEQ/L (2-14); CHLORIDE 106 MEQ/L (99-109); CREATINE KINASE 228 IU/L (1-294); GFR ESTIMATE (CALCULATED) > 59 mL/min/; GLUCOSE 133 mg/dL (70-99); POTASSIUM 3.8 MEQ/L (3.7-5.4); SAMPLE HEMOLYSIS CHECK 0; SAMPLE ICTERIC CHECK 0; SAMPLE LIPEMIA CHECK 0; SODIUM 138 MEQ/L (136-147); UREA NITROGEN (BUN) 8 mg/dL (9-23)
[2016-07-24 15:52] VITALS: BP 158/101
[2016-07-25 00:02] VITALS: BP 146/77
[2016-07-25 06:07] LABS: EOSINOPHIL (%) 4.8 % (0-5); EOSINOPHIL COUNT 0.3 K/uL (0-0.3); HEMATOCRIT 35.5 % (38.0-50.0); IMMATURE GRANULOCYTE (%) 1.3 % (0.0-0.7); IMMATURE GRANULOCYTE COUNT 0.1 K/uL; INSTRUMENT ABS NEUTROPHIL CT 4.3 K/uL; LYMPHOCYTE COUNT 1.5 K/uL (1.0-2.8); MCH 29.7 PG (29.0-34.0); MCHC 31.8 G/DL (30.0-36.0); MCV 93.2 FL (86-99); MEAN PLAT.VOLUME 11.4 uM^3 (9.0-12.4); MONOCYTE (%) 10.9 % (3-12); MONOCYTE COUNT 0.8 K/uL (0-0.8); NEUTROPHIL (%) 60.6 % (45-76); NEUTROPHIL COUNT 4.3 K/uL (1.8-6.4); PLATELET COUNT 236 K/uL (156-360); RBC DIS.WIDTH-CV 14.2 % (11.8-14.6); RBC DIS.WIDTH-SD 48.3 % (39-53); RED BLOOD COUNT 3.81 M/uL (4.00-5.50); WHITE BLOOD COUNT 7.1 K/uL (4.1-10.2)
[2016-07-25 06:25] LABS: ANION GAP 7 MEQ/L (2-14); CHLORIDE 105 MEQ/L (99-109); GFR ESTIMATE (CALCULATED) > 59 mL/min/; GLUCOSE 100 mg/dL (70-99); POTASSIUM 3.9 MEQ/L (3.7-5.4); SAMPLE HEMOLYSIS CHECK 0; SAMPLE ICTERIC CHECK 0; SAMPLE LIPEMIA CHECK 0; SODIUM 139 MEQ/L (136-147); UREA NITROGEN (BUN) 12 mg/dL (9-23)
[2016-07-25 08:03] VITALS: BP 138/67
[2016-07-25] MEDS ORDERED: METRONIDAZOLE500 MG PO (10:23)
[2016-07-25] MEDS ORDERED: CLONIDINE HCL0.2 MG PO (10:23)
[2016-07-25] MEDS ORDERED: NICOTINE PATCH1 EAC2 TD (10:23)
[2016-07-25] MEDS ORDERED: PRAZOSIN HCL1 MG PO (10:23)
[2016-07-25 11:11] LABS: HEMATOCRIT 36.6 % (38.0-50.0); MCH 29.7 PG (29.0-34.0); MCHC 31.7 G/DL (30.0-36.0); MCV 93.6 FL (86-99); MEAN PLAT.VOLUME 11.1 uM^3 (9.0-12.4); PLATELET COUNT 255 K/uL (156-360); RBC DIS.WIDTH-CV 14.2 % (11.8-14.6); RBC DIS.WIDTH-SD 49.1 % (39-53); RED BLOOD COUNT 3.91 M/uL (4.00-5.50); WHITE BLOOD COUNT 6.7 K/uL (4.1-10.2)
[2016-07-25 11:21] LABS: CHLORIDE 107 mEq/L (99-109); POTASSIUM 4.3 mEq/L (3.7-5.4); SODIUM 140 mEq/L (136-147)
[2016-07-25 11:23] LABS: GLUCOSE 118 mg/dL (70-99)
[2016-07-25 11:25] LABS: ANION GAP 8 MEQ/L (2-14)
[2016-07-25 11:27] LABS: GFR ESTIMATE (CALCULATED) > 59 mL/min/
[2016-07-25 11:28] LABS: UREA NITROGEN (BUN) 13 mg/dL (9-23)
[2016-07-25 11:36] LABS: TROP-I INTERPRETATION NEGATIVE; TROPONIN-I < 0.01 ng/mL (0.0-0.30)
[2016-07-25 12:06] VITALS: BP 78/36
[2016-07-25 14:36] VITALS: BP 114/78; BP 144/78
[2016-07-25 15:09] LABS: CREATINE KINASE 80 IU/L (1-294); TOTAL CK 80 IU/L (1-294)
[2016-07-25 15:39] LABS: CK-MB 0.9 ng/mL (0.0-4.9)
[2016-07-25 16:15] LABS: ALKALINE PHOSPHATASE 54 IU/L (3-129); ANION GAP 6 MEQ/L (2-14); CHLORIDE 109 MEQ/L (99-109); GFR ESTIMATE (CALCULATED) > 59 mL/min/; GLUCOSE 99 mg/dL (70-99); POTASSIUM 4.5 MEQ/L (3.7-5.4); SAMPLE HEMOLYSIS CHECK 0; SAMPLE ICTERIC CHECK 0; SAMPLE LIPEMIA CHECK 0; SODIUM 141 MEQ/L (136-147); TOTAL BILIRUBIN 0.1 MG/DL (0.0-1.0); UREA NITROGEN (BUN) 13 mg/dL (9-23)
[2016-07-25 17:05] VITALS: BP 128/78
[2016-07-25 20:25] VITALS: BP 143/94
[2016-07-26] VITALS (7 sets, daily range): BP systolic 89–163; BP diastolic 53–83
[2016-07-27 00:16] VITALS: BP 147/79
[2016-07-27 04:29] VITALS: BP 111/75
[2016-07-27 06:19] LABS: ANION GAP 7 MEQ/L (2-14); CHLORIDE 104 MEQ/L (99-109); GFR ESTIMATE (CALCULATED) > 59 mL/min/; GLUCOSE 89 mg/dL (70-99); POTASSIUM 4.6 MEQ/L (3.7-5.4); SAMPLE HEMOLYSIS CHECK 0; SAMPLE ICTERIC CHECK 0; SAMPLE LIPEMIA CHECK 0; SODIUM 138 MEQ/L (136-147)
[2016-07-27 06:20] LABS: UREA NITROGEN (BUN) 21 mg/dL (9-23)
[2016-07-27 06:40] LABS: BASOPHIL COUNT 0.1 K/uL (0-0.1); EOSINOPHIL (%) 4.5 % (0-5); EOSINOPHIL COUNT 0.5 K/uL (0-0.3); HEMATOCRIT 37.1 % (38.0-50.0); IMMATURE GRANULOCYTE (%) 1.4 % (0.0-0.7); IMMATURE GRANULOCYTE COUNT 0.1 K/uL; INSTRUMENT ABS NEUTROPHIL CT 6.6 K/uL; LYMPHOCYTE COUNT 1.7 K/uL (1.0-2.8); MCH 29.4 PG (29.0-34.0); MCHC 31.3 G/DL (30.0-36.0); MCV 93.9 FL (86-99); MEAN PLAT.VOLUME 11.4 uM^3 (9.0-12.4); MONOCYTE (%) 10.5 % (3-12); MONOCYTE COUNT 1.1 K/uL (0-0.8); NEUTROPHIL (%) 66.3 % (45-76); NEUTROPHIL COUNT 6.6 K/uL (1.8-6.4); PLATELET COUNT 272 K/uL (156-360); RBC DIS.WIDTH-CV 14.2 % (11.8-14.6); RBC DIS.WIDTH-SD 49.3 % (39-53); RED BLOOD COUNT 3.95 M/uL (4.00-5.50)
[2016-07-27 07:51] VITALS: BP 133/89
[2016-07-27 15:03] VITALS: BP 130/66
[2016-07-27] MEDS ORDERED: LIBRIUM25 MG PO (16:03)
== END 2016-07-27 19:30 | disposition home or self-care (01) | DRG 70 ==
LOC: EME → EDBD 22:04 → EDOF 07-21 03:09 → 3EAST 07-21 03:09
PROVIDERS: Emergency Medicine; Family Medicine; Physician Assistant; Student in an Organized Health Care Education/Training Program
DX: G93.41 Metabolic encephalopathy (principal); E43 Unspecified severe protein-calorie malnutrition; A04.7 Enterocolitis due to Clostridium difficile; F10.231 Alcohol dependence with withdrawal delirium; M62.82 Rhabdomyolysis; Z68.1 Body mass index [BMI] 19.9 or less, adult; E86.0 Dehydration; E87.6 Hypokalemia; I10 Essential (primary) hypertension; F32.9 Major depressive disorder, single episode, unspecified; E78.5 Hyperlipidemia, unspecified; F43.10 Post-traumatic stress disorder, unspecified; F17.210 Nicotine dependence, cigarettes, uncomplicated; G40.909 Epilepsy, unspecified, not intractable, without status epilepticus; Z90.49 Acquired absence of other specified parts of digestive tract; Z85.038 Personal history of other malignant neoplasm of large intestine
CPT/HCPCS: 70450; 70551; 71010; 72125; 80048; 80048 91; 80053; 80069; 80076; 81003; 82140; 82550; 82553; 82948; 83605; 83690; 83735; 83880; 84484; 84999; 85025; 85027; 85610; 85730; 86703; 87040; 87177; 87329; 87493; 87506; 93005; 99281; 99284; 99285; G0480; J2060; J3411; J3475; J3480; J7030; J7040; J7120; S0030

== ENCOUNTER 2016-08-06 13:46 | Emergency (ER) | payer OTHER ==
[~2016-08-06] VITALS: Ht 170.2 cm; Wt 59.1 kg
[~2016-08-06 13:46] MED LIST changes: +CATAPRES0.1 MG PO; +METRONIDAZOLE500 MG PO; +PRAZOSIN HCL1 MG PO
[2016-08-06 14:59] LABS: ADD MIUA? YES; BILIRUBIN NEGATIVE; BLOOD NEGATIVE; COLOR YELLOW ((YELLOW)); GLUCOSE (STRIP) NEGATIVE; KETONES 5; LEUKOCYTES TRACE; NITRITE NEGATIVE; PROTEIN (STRIP) NEGATIVE; SPECIFIC GRAVITY 1.008 (1.000-1.030); UROBILINOGEN 0.2 MG/DL (0.2-1.0)
[2016-08-06 15:05] LABS: BACTERIA NONE SEEN /HPF; EPITHELIAL CELLS RARE /HPF; MUCUS TRACE /LPF; RED BLOOD CELLS 0-5 /HPF (0-5); WHITE BLOOD CELLS 0-5 /HPF (0-5)
[2016-08-06 15:12] LABS: HEMATOCRIT 39.7 % (38.0-50.0); MCH 29.7 PG (29.0-34.0); MCHC 33.5 G/DL (30.0-36.0); MCV 88.6 FL (86-99); MEAN PLAT.VOLUME 10.8 uM^3 (9.0-12.4); PLATELET COUNT 359 K/uL (156-360); RBC DIS.WIDTH-CV 13.6 % (11.8-14.6); RBC DIS.WIDTH-SD 44.8 % (39-53); RED BLOOD COUNT 4.48 M/uL (4.00-5.50); WHITE BLOOD COUNT 7.3 K/uL (4.1-10.2)
[2016-08-06 15:16] LABS: ADD MEDTOX COMMENT Y; AMPHETAMINE PRESUMPTIVE POSITIVE (500 ng/mL); BARBITURATES NEGATIVE (200 ng/mL); BENZODIAZEPINES PRESUMPTIVE POSITIVE (150 ng/mL); COCAINE NEGATIVE (150 ng/mL); INTERNAL CONTROLS VALID? YES; METHADONE NEGATIVE (200 ng/mL); METHAMPHETAMINE NEGATIVE (500 ng/mL); OPIATES (MORPHINE) NEGATIVE (100 ng/mL); OXYCODONE NEGATIVE (100 ng/mL); PHENCYCLIDINE NEGATIVE (25 ng/mL); PROPOXYPHENE NEGATIVE (300 ng/mL); THC CANNABINOIDS NEGATIVE (50 ng/mL); TRICYCLIC ANTIDEPRESSANTS PRESUMPTIVE POSITIVE (300 ng/mL)
[2016-08-06 15:19] LABS: CHLORIDE 101 mEq/L (99-109); POTASSIUM 4.4 mEq/L (3.7-5.4); SODIUM 132 mEq/L (136-147)
[2016-08-06 15:21] LABS: GLUCOSE 96 mg/dL (70-99)
[2016-08-06 15:22] LABS: ANION GAP 15 MEQ/L (2-14)
[2016-08-06 15:23] LABS: TOTAL BILIRUBIN 0.5 mg/dL (0.0-1.0)
[2016-08-06 15:24] LABS: SERUM ETHYL ALCOHOL 221 mg/dL
[2016-08-06 15:25] LABS: ALKALINE PHOSPHATASE 76 IU/L (3-129); GFR ESTIMATE (CALCULATED) > 59 mL/min/
[2016-08-06 15:26] LABS: UREA NITROGEN (BUN) 18 mg/dL (9-23)
[2016-08-06 15:50] LABS: BENZODIAZEPINES QUANT VALUE 0 NG/ML; BENZODIAZEPINES, URINE SCREEN Negative (200 ng/mL)
[2016-08-06 17:54] VITALS: BP 92/68
== END 2016-08-06 17:55 | disposition home or self-care (01) ==
LOC: EME 13:46
PROVIDERS: Emergency Medicine
DX: F10.129 Alcohol abuse with intoxication, unspecified (principal); Y90.7 Blood alcohol level of 200-239 mg/100 ml; J44.9 Chronic obstructive pulmonary disease, unspecified; E78.5 Hyperlipidemia, unspecified; I10 Essential (primary) hypertension; Z87.442 Personal history of urinary calculi; R56.9 Unspecified convulsions; Z95.1 Presence of aortocoronary bypass graft; Z85.038 Personal history of other malignant neoplasm of large intestine; F17.200 Nicotine dependence, unspecified, uncomplicated
CPT/HCPCS: 80053; 81003; 84999; 85027; 99281; 99284; G0480

== ENCOUNTER 2016-08-13 17:28 | Inpatient (IN) | payer OTHER ==
[~2016-08-13] VITALS: Ht 170.2 cm; Wt 57.7 kg
[2016-08-13 18:00] LABS: ADD MIUA? YES; BILIRUBIN NEGATIVE; BLOOD NEGATIVE; COLOR YELLOW ((YELLOW)); GLUCOSE (STRIP) NEGATIVE; KETONES NEGATIVE; LEUKOCYTES MODERATE; NITRITE NEGATIVE; PROTEIN (STRIP) NEGATIVE; SPECIFIC GRAVITY 1.015 (1.000-1.030)
[2016-08-13 18:11] LABS: AMPHETAMINE NEGATIVE (500 ng/mL); BARBITURATES NEGATIVE (200 ng/mL); BENZODIAZEPINES PRESUMPTIVE POSITIVE (150 ng/mL); COCAINE NEGATIVE (150 ng/mL); INTERNAL CONTROLS VALID? YES; METHADONE NEGATIVE (200 ng/mL); METHAMPHETAMINE NEGATIVE (500 ng/mL); OPIATES (MORPHINE) NEGATIVE (100 ng/mL); OXYCODONE NEGATIVE (100 ng/mL); PHENCYCLIDINE NEGATIVE (25 ng/mL); PROPOXYPHENE NEGATIVE (300 ng/mL); THC CANNABINOIDS NEGATIVE (50 ng/mL); TRICYCLIC ANTIDEPRESSANTS PRESUMPTIVE POSITIVE (300 ng/mL)
[2016-08-13 18:12] LABS: ADD MEDTOX COMMENT Y
[2016-08-13 18:16] LABS: BACTERIA NONE SEEN /HPF; EPITHELIAL CELLS RARE /HPF; MUCUS TRACE /LPF; RED BLOOD CELLS 0-5 /HPF (0-5); UCUL ADDED? YES; WHITE BLOOD CELLS TNTC /HPF (0-5)
[2016-08-13 18:33] LABS: CHLORIDE 109 mEq/L (99-109); POTASSIUM 3.8 mEq/L (3.7-5.4); SODIUM 141 mEq/L (136-147)
[2016-08-13 18:34] LABS: GLUCOSE 83 mg/dL (70-99); INTER. NORMALIZED RATIO 1.1; PROTHROMBIN TIME 10.7 (9.2-11.2); PTT 24.3 (25-32)
[2016-08-13 18:35] LABS: EOSINOPHIL (%) 3.4 % (0-5); EOSINOPHIL COUNT 0.2 K/uL (0-0.3); HEMATOCRIT 30.1 % (38.0-50.0); IMMATURE GRANULOCYTE (%) 0.6 % (0.0-0.7); INSTRUMENT ABS NEUTROPHIL CT 3.3 K/uL; LYMPHOCYTE COUNT 1.3 K/uL (1.0-2.8); MCH 29.5 PG (29.0-34.0); MCHC 31.9 G/DL (30.0-36.0); MONOCYTE (%) 8.9 % (3-12); MONOCYTE COUNT 0.5 K/uL (0-0.8); NEUTROPHIL COUNT 3.3 K/uL (1.8-6.4); RBC DIS.WIDTH-CV 14.3 % (11.8-14.6); RBC DIS.WIDTH-SD 48.1 % (39-53); WHITE BLOOD COUNT 5.3 K/uL (4.1-10.2)
[2016-08-13 18:36] LABS: ANION GAP 7 MEQ/L (2-14)
[2016-08-13 18:38] LABS: GFR ESTIMATE (CALCULATED) > 59 mL/min/; SERUM ETHYL ALCOHOL < 10 mg/dL
[2016-08-13 18:39] LABS: UREA NITROGEN (BUN) 13 mg/dL (9-23)
[2016-08-13 18:43] LABS: TROP-I INTERPRETATION NEGATIVE; TROPONIN-I < 0.01 ng/mL (0.0-0.30)
[2016-08-13 18:46] LABS: BENZODIAZEPINES, URINE SCREEN POSITIVE (200 ng/mL)
[2016-08-13 19:11] LABS: MCV 92.6 FL (86-99); RED BLOOD COUNT 3.25 M/uL (4.00-5.50)
[2016-08-13 19:15] LABS: PLATELET CLUMPS PRESENT - PLATELET COUNT APPEARS ADQ.; PLATELET COUNT UNABLE TO REPORT K/uL (156-360)
[2016-08-13 23:09] VITALS: BP 134/88
[2016-08-14 01:57] LABS: METH RESISTANT S AUREUS PCR POSITIVE (NEGATIVE); PROBE CHECK PASS
[2016-08-14 04:45] VITALS: BP 122/77
[2016-08-14 07:51] LABS: FERRITIN 14 NG/ML (22-322)
[2016-08-14 08:28] LABS: HEMATOCRIT 29.3 % (38.0-50.0); MCH 30.1 PG (29.0-34.0); MCHC 31.7 G/DL (30.0-36.0); MCV 94.8 FL (86-99); MEAN PLAT.VOLUME 11.6 uM^3 (9.0-12.4); RBC DIS.WIDTH-CV 14.6 % (11.8-14.6); RBC DIS.WIDTH-SD 51.1 % (39-53); RED BLOOD COUNT 3.09 M/uL (4.00-5.50)
[2016-08-14 08:30] LABS: PLATELET COUNT 171 K/uL (156-360); WHITE BLOOD COUNT 3.7 K/uL (4.1-10.2)
[2016-08-14 08:39] LABS: ANION GAP 6 MEQ/L (2-14); CHLORIDE 111 MEQ/L (99-109); GFR ESTIMATE (CALCULATED) > 59 mL/min/; SAMPLE HEMOLYSIS CHECK 0; SAMPLE ICTERIC CHECK 0; SAMPLE LIPEMIA CHECK 0; SODIUM 141 MEQ/L (136-147); UREA NITROGEN (BUN) 10 mg/dL (9-23)
[2016-08-14 08:41] LABS: GLUCOSE 152 mg/dL (70-99)
[2016-08-14 09:25] VITALS: BP 136/91
[2016-08-14 12:14] VITALS: BP 134/83
[2016-08-14 19:23] VITALS: BP 136/82
[2016-08-14 22:57] VITALS: BP 152/106
[2016-08-15 04:04] VITALS: BP 124/93
[2016-08-15 06:22] LABS: HEMATOCRIT 33.6 % (38.0-50.0); MCH 29.2 PG (29.0-34.0); MCHC 31.3 G/DL (30.0-36.0); MCV 93.6 FL (86-99); MEAN PLAT.VOLUME 11.7 uM^3 (9.0-12.4); PLATELET COUNT 212 K/uL (156-360); RBC DIS.WIDTH-CV 14.3 % (11.8-14.6); RED BLOOD COUNT 3.59 M/uL (4.00-5.50)
[2016-08-15 06:24] LABS: ANION GAP 7 MEQ/L (2-14); CHLORIDE 106 MEQ/L (99-109); GFR ESTIMATE (CALCULATED) > 59 mL/min/; GLUCOSE 104 mg/dL (70-99); POTASSIUM 4.1 MEQ/L (3.7-5.4); SAMPLE HEMOLYSIS CHECK 0; SAMPLE ICTERIC CHECK 0; SAMPLE LIPEMIA CHECK 0; SODIUM 140 MEQ/L (136-147); UREA NITROGEN (BUN) 12 mg/dL (9-23)
[2016-08-15 06:28] LABS: WHITE BLOOD COUNT 5.3 K/uL (4.1-10.2)
[2016-08-15 07:39] VITALS: BP 152/94
[2016-08-15 11:21] VITALS: BP 142/68
[2016-08-15] MEDS ORDERED: MACROBID100 MG PO (13:16)
[2016-08-15] MEDS ORDERED: LEVETIRACETAM750 MG PO (13:16)
[2016-08-15] MEDS ORDERED: GABAPENTIN600 MG PO (13:50)
[2016-08-15] MEDS ORDERED: AMITRIPTYLINE100 MG PO (13:51)
[2016-08-15] MEDS ORDERED: PRISTIQ100 MG PO (13:51)
[2016-08-15] MEDS ORDERED: CLONIDINE HCL0.2 MG PO ×2 (13:52→14:02)
[2016-08-15] MEDS ORDERED: LIBRIUM25 MG PO (13:52)
[2016-08-15] MEDS ORDERED: PRAZOSIN HCL1 MG PO (13:52)
[2016-08-15] MEDS ORDERED: NICOTINE PATCH1 EAC2 TD (13:53)
[2016-08-15] MEDS ORDERED: ADDERALL XR 3030 MG PO ×2 (13:53→14:02)
[2016-08-15] MEDS ORDERED: KEPPRA500 MG PO (13:54)
== END 2016-08-15 14:59 | disposition home or self-care (01) | DRG 918 ==
LOC: EME 17:28 → EDOF 21:34 → 5WEST 22:52 → 5SOUTH 08-14 10:00 → 5WEST 08-14 10:00 → 5SOUTH 08-14 16:11
PROVIDERS: Emergency Medicine; Internal Medicine; Physician Assistant Medical
DX: T42.4X1A Poisoning by benzodiazepines, accidental (unintentional), initial encounter (principal); N39.0 Urinary tract infection, site not specified; A04.7 Enterocolitis due to Clostridium difficile; G40.909 Epilepsy, unspecified, not intractable, without status epilepticus; F10.239 Alcohol dependence with withdrawal, unspecified; Y90.0 Blood alcohol level of less than 20 mg/100 ml; I10 Essential (primary) hypertension; J44.9 Chronic obstructive pulmonary disease, unspecified; I25.10 Atherosclerotic heart disease of native coronary artery without angina pectoris; F17.210 Nicotine dependence, cigarettes, uncomplicated; Z95.1 Presence of aortocoronary bypass graft; Z85.038 Personal history of other malignant neoplasm of large intestine
CPT/HCPCS: 70450; 71010; 80048; 81003; 82607; 82728; 82746; 83735; 84484; 84999; 85025; 85027; 85610; 85730; 87040; 87086; 87641; 93005; 99281; 99285; G0378; G0480; J0696; J1650; J3411; J7030; J7050

== ENCOUNTER 2016-09-24 14:28 | Inpatient (IN) | payer OTHER ==
[~2016-09-24] VITALS: Ht 170.2 cm; Wt 56.0 kg
[~2016-09-24 14:28] MED LIST changes: +AMITRIPTYLINE100 MG PO; +LEVETIRACETAM750 MG PO; +MACROBID100 MG PO
[2016-09-24 16:12] LABS: BASOPHIL COUNT 0.1 K/uL (0-0.1); EOSINOPHIL (%) 2.3 % (0-5); EOSINOPHIL COUNT 0.1 K/uL (0-0.3); HEMATOCRIT 38.6 % (38.0-50.0); IMMATURE GRANULOCYTE (%) 0.4 % (0.0-0.7); LYMPHOCYTE COUNT 1.2 K/uL (1.0-2.8); MCH 28.9 PG (29.0-34.0); MCHC 32.1 G/DL (30.0-36.0); MONOCYTE (%) 6.8 % (3-12); MONOCYTE COUNT 0.3 K/uL (0-0.8); NEUTROPHIL (%) 63.6 % (45-76); RBC DIS.WIDTH-CV 14.6 % (11.8-14.6); RBC DIS.WIDTH-SD 48.4 % (39-53); RED BLOOD COUNT 4.29 M/uL (4.00-5.50); WHITE BLOOD COUNT 4.7 K/uL (4.1-10.2)
[2016-09-24 16:21] LABS: CHLORIDE 108 mEq/L (99-109); POTASSIUM 3.8 mEq/L (3.7-5.4); SODIUM 139 mEq/L (136-147)
[2016-09-24 16:23] LABS: GLUCOSE 82 mg/dL (70-99)
[2016-09-24 16:24] LABS: ADD MIUA? NO; BILIRUBIN NEGATIVE; BLOOD NEGATIVE; COLOR YELLOW ((YELLOW)); GLUCOSE (STRIP) NEGATIVE; KETONES NEGATIVE; LEUKOCYTES NEGATIVE; NITRITE NEGATIVE; PROTEIN (STRIP) NEGATIVE; SPECIFIC GRAVITY 1.017 (1.000-1.030); UCUL ADDED? NO; UROBILINOGEN 0.2 MG/DL (0.2-1.0)
[2016-09-24 16:24] LABS: ANION GAP 9 MEQ/L (2-14)
[2016-09-24 16:25] LABS: TOTAL BILIRUBIN 0.4 mg/dL (0.0-1.0)
[2016-09-24 16:26] LABS: SERUM ETHYL ALCOHOL 132 mg/dL
[2016-09-24 16:27] LABS: ALKALINE PHOSPHATASE 62 IU/L (3-129); GFR ESTIMATE (CALCULATED) > 59 mL/min/
[2016-09-24 16:28] LABS: UREA NITROGEN (BUN) 18 mg/dL (9-23)
[2016-09-24 16:33] LABS: TROP-I INTERPRETATION NEGATIVE; TROPONIN-I < 0.01 ng/mL (0.0-0.30)
[2016-09-24 17:46] LABS: MEAN PLAT.VOLUME 11.1 uM^3 (9.0-12.4); PLAT.SUFFICIENCY ADEQUATE; PLATELET COUNT 153 K/uL (156-360)
[2016-09-24 21:14] LABS: MAGNESIUM 2.2 mg/dL (1.3-2.7)
[2016-09-24 23:15] VITALS: BP 178/18
[2016-09-24 23:23] LABS: TROP-I INTERPRETATION NEGATIVE; TROPONIN-I < 0.01 ng/mL (0.0-0.30)
[2016-09-25 06:26] LABS: TROP-I INTERPRETATION NEGATIVE; TROPONIN-I < 0.01 ng/mL (0.0-0.30)
[2016-09-25 06:51] LABS: HEMATOCRIT 40.7 % (38.0-50.0); MCH 29.2 PG (29.0-34.0); MCHC 32.2 G/DL (30.0-36.0); MCV 90.8 FL (86-99); MEAN PLAT.VOLUME 11.5 uM^3 (9.0-12.4); PLATELET COUNT 213 K/uL (156-360); RBC DIS.WIDTH-CV 14.3 % (11.8-14.6); RBC DIS.WIDTH-SD 48.1 % (39-53); RED BLOOD COUNT 4.48 M/uL (4.00-5.50); WHITE BLOOD COUNT 5.6 K/uL (4.1-10.2)
[2016-09-25 07:19] LABS: ANION GAP 10 MEQ/L (2-14); CHLORIDE 101 MEQ/L (99-109); GFR ESTIMATE (CALCULATED) > 59 mL/min/; POTASSIUM 3.1 MEQ/L (3.7-5.4); SAMPLE HEMOLYSIS CHECK 0; SAMPLE ICTERIC CHECK 0; SAMPLE LIPEMIA CHECK 0; SODIUM 136 MEQ/L (136-147); UREA NITROGEN (BUN) 17 mg/dL (9-23)
[2016-09-25 07:25] LABS: GLUCOSE 105 mg/dL (70-99)
[2016-09-25 07:27] LABS: INTER. NORMALIZED RATIO 1.1; PROTHROMBIN TIME 10.8 (9.2-11.2)
[2016-09-25 08:17] VITALS: BP 117/70
[2016-09-25 10:00] LABS: ERTH.SED.RATE 5 MM/HR (0-20)
[2016-09-25 12:36] VITALS: BP 158/90
[2016-09-25 15:40] VITALS: BP 160/90
[2016-09-25 23:38] VITALS: BP 165/100
[2016-09-26] VITALS (8 sets, daily range): BP systolic 126–165; BP diastolic 63–100
[2016-09-26 05:34] LABS: BASOPHIL COUNT 0.1 K/uL (0-0.1); EOSINOPHIL (%) 5.3 % (0-5); EOSINOPHIL COUNT 0.3 K/uL (0-0.3); HEMATOCRIT 37.1 % (38.0-50.0); IMMATURE GRANULOCYTE (%) 0.2 % (0.0-0.7); INSTRUMENT ABS NEUTROPHIL CT 3.2 K/uL; LYMPHOCYTE COUNT 1.2 K/uL (1.0-2.8); MCH 29.5 PG (29.0-34.0); MCHC 32.1 G/DL (30.0-36.0); MCV 92.1 FL (86-99); MEAN PLAT.VOLUME 11.2 uM^3 (9.0-12.4); MONOCYTE (%) 7.7 % (3-12); MONOCYTE COUNT 0.4 K/uL (0-0.8); NEUTROPHIL (%) 62.8 % (45-76); NEUTROPHIL COUNT 3.2 K/uL (1.8-6.4); PLATELET COUNT 172 K/uL (156-360); RBC DIS.WIDTH-CV 14.3 % (11.8-14.6); RBC DIS.WIDTH-SD 48.8 % (39-53); RED BLOOD COUNT 4.03 M/uL (4.00-5.50); WHITE BLOOD COUNT 5.1 K/uL (4.1-10.2)
[2016-09-26 06:05] LABS: ANION GAP 6 MEQ/L (2-14); CHLORIDE 108 MEQ/L (99-109); GFR ESTIMATE (CALCULATED) > 59 mL/min/; GLUCOSE 102 mg/dL (70-99); SAMPLE HEMOLYSIS CHECK 0; SAMPLE ICTERIC CHECK 0; SAMPLE LIPEMIA CHECK 0; SODIUM 137 MEQ/L (136-147); UREA NITROGEN (BUN) 13 mg/dL (9-23)
[2016-09-26 06:06] LABS: POTASSIUM 4.2 MEQ/L (3.7-5.4)
[2016-09-27 06:35] LABS: EOSINOPHIL (%) 5.7 % (0-5); EOSINOPHIL COUNT 0.3 K/uL (0-0.3); IMMATURE GRANULOCYTE (%) 0.7 % (0.0-0.7); INSTRUMENT ABS NEUTROPHIL CT 2.3 K/uL; LYMPHOCYTE COUNT 1.3 K/uL (1.0-2.8); MCH 29.6 PG (29.0-34.0); MCHC 31.9 G/DL (30.0-36.0); MCV 92.5 FL (86-99); MEAN PLAT.VOLUME 11.7 uM^3 (9.0-12.4); MONOCYTE (%) 11.6 % (3-12); MONOCYTE COUNT 0.5 K/uL (0-0.8); NEUTROPHIL (%) 52.5 % (45-76); NEUTROPHIL COUNT 2.3 K/uL (1.8-6.4); PLATELET COUNT 183 K/uL (156-360); RBC DIS.WIDTH-CV 14.6 % (11.8-14.6); RBC DIS.WIDTH-SD 49.1 % (39-53); RED BLOOD COUNT 3.89 M/uL (4.00-5.50); WHITE BLOOD COUNT 4.4 K/uL (4.1-10.2)
[2016-09-27 07:07] LABS: ANION GAP 3 MEQ/L (2-14); CHLORIDE 108 MEQ/L (99-109); GFR ESTIMATE (CALCULATED) > 59 mL/min/; GLUCOSE 101 mg/dL (70-99); POTASSIUM 4.2 MEQ/L (3.7-5.4); SAMPLE HEMOLYSIS CHECK 0; SAMPLE ICTERIC CHECK 0; SAMPLE LIPEMIA CHECK 0; SODIUM 139 MEQ/L (136-147); UREA NITROGEN (BUN) 12 mg/dL (9-23)
[2016-09-27 07:18] VITALS: BP 128/59
[2016-09-27 12:00] VITALS: BP 140/98
[2016-09-27 15:59] VITALS: BP 125/90
[2016-09-27 23:32] VITALS: BP 133/84
[2016-09-28 06:08] LABS: EOSINOPHIL (%) 6.9 % (0-5); EOSINOPHIL COUNT 0.3 K/uL (0-0.3); HEMATOCRIT 34.2 % (38.0-50.0); IMMATURE GRANULOCYTE (%) 0.7 % (0.0-0.7); INSTRUMENT ABS NEUTROPHIL CT 2.1 K/uL; LYMPHOCYTE COUNT 1.4 K/uL (1.0-2.8); MCH 30.1 PG (29.0-34.0); MCHC 32.2 G/DL (30.0-36.0); MCV 93.7 FL (86-99); MEAN PLAT.VOLUME 11.8 uM^3 (9.0-12.4); MONOCYTE (%) 10.8 % (3-12); MONOCYTE COUNT 0.5 K/uL (0-0.8); NEUTROPHIL (%) 48.5 % (45-76); NEUTROPHIL COUNT 2.1 K/uL (1.8-6.4); PLATELET COUNT 167 K/uL (156-360); RBC DIS.WIDTH-CV 14.5 % (11.8-14.6); RBC DIS.WIDTH-SD 50.4 % (39-53); RED BLOOD COUNT 3.65 M/uL (4.00-5.50); WHITE BLOOD COUNT 4.4 K/uL (4.1-10.2)
[2016-09-28 06:30] LABS: ANION GAP 4 MEQ/L (2-14); CHLORIDE 108 MEQ/L (99-109); GFR ESTIMATE (CALCULATED) > 59 mL/min/; GLUCOSE 99 mg/dL (70-99); POTASSIUM 4.1 MEQ/L (3.7-5.4); SAMPLE HEMOLYSIS CHECK 0; SAMPLE ICTERIC CHECK 0; SAMPLE LIPEMIA CHECK 0; SODIUM 138 MEQ/L (136-147); UREA NITROGEN (BUN) 14 mg/dL (9-23)
[2016-09-28 06:55] VITALS: BP 142/86
[2016-09-28 14:50] VITALS: BP 129/83
[2016-09-28 23:58] VITALS: BP 155/102
[2016-09-29 06:06] LABS: EOSINOPHIL COUNT 0.3 K/uL (0-0.3); IMMATURE GRANULOCYTE (%) 0.5 % (0.0-0.7); INSTRUMENT ABS NEUTROPHIL CT 6.4 K/uL; LYMPHOCYTE COUNT 1.4 K/uL (1.0-2.8); MCH 30.3 PG (29.0-34.0); MCHC 32.5 G/DL (30.0-36.0); MCV 93.3 FL (86-99); MEAN PLAT.VOLUME 11.5 uM^3 (9.0-12.4); MONOCYTE (%) 7.2 % (3-12); MONOCYTE COUNT 0.6 K/uL (0-0.8); NEUTROPHIL (%) 73.1 % (45-76); NEUTROPHIL COUNT 6.4 K/uL (1.8-6.4); PLATELET COUNT 163 K/uL (156-360); RBC DIS.WIDTH-CV 14.2 % (11.8-14.6); RBC DIS.WIDTH-SD 48.8 % (39-53); RED BLOOD COUNT 3.86 M/uL (4.00-5.50); WHITE BLOOD COUNT 8.7 K/uL (4.1-10.2)
[2016-09-29 06:19] LABS: ANION GAP 7 MEQ/L (2-14); CHLORIDE 106 MEQ/L (99-109); GFR ESTIMATE (CALCULATED) > 59 mL/min/; GLUCOSE 97 mg/dL (70-99); POTASSIUM 4.1 MEQ/L (3.7-5.4); SAMPLE HEMOLYSIS CHECK 0; SAMPLE ICTERIC CHECK 0; SAMPLE LIPEMIA CHECK 0; SODIUM 138 MEQ/L (136-147); UREA NITROGEN (BUN) 15 mg/dL (9-23)
[2016-09-29 06:49] VITALS: BP 158/104
[2016-09-29 09:12] VITALS: BP 138/83
[2016-09-29 15:31] VITALS: BP 131/87
[2016-09-29 23:30] VITALS: BP 142/87
[2016-09-30 07:02] LABS: BASOPHIL COUNT 0.1 K/uL (0-0.1); EOSINOPHIL (%) 2.9 % (0-5); EOSINOPHIL COUNT 0.3 K/uL (0-0.3); HEMATOCRIT 33.7 % (38.0-50.0); IMMATURE GRANULOCYTE (%) 0.6 % (0.0-0.7); IMMATURE GRANULOCYTE COUNT 0.1 K/uL; INSTRUMENT ABS NEUTROPHIL CT 7.6 K/uL; LYMPHOCYTE COUNT 1.3 K/uL (1.0-2.8); MCH 29.5 PG (29.0-34.0); MCV 92.1 FL (86-99); MONOCYTE (%) 8.2 % (3-12); MONOCYTE COUNT 0.8 K/uL (0-0.8); NEUTROPHIL COUNT 7.6 K/uL (1.8-6.4); PLATELET COUNT 173 K/uL (156-360); RBC DIS.WIDTH-CV 14.4 % (11.8-14.6); RBC DIS.WIDTH-SD 48.6 % (39-53); RED BLOOD COUNT 3.66 M/uL (4.00-5.50); WHITE BLOOD COUNT 10.1 K/uL (4.1-10.2)
[2016-09-30 07:07] VITALS: BP 135/94
[2016-09-30 07:33] LABS: ANION GAP 7 MEQ/L (2-14); CHLORIDE 104 MEQ/L (99-109); GFR ESTIMATE (CALCULATED) > 59 mL/min/; GLUCOSE 82 mg/dL (70-99); POTASSIUM 3.9 MEQ/L (3.7-5.4); SAMPLE HEMOLYSIS CHECK 0; SAMPLE ICTERIC CHECK 0; SAMPLE LIPEMIA CHECK 0; SODIUM 139 MEQ/L (136-147); UREA NITROGEN (BUN) 12 mg/dL (9-23)
[2016-09-30] MEDS ORDERED: NICOTINE PATCH1 EAC2 TD (12:42)
[2016-09-30] MEDS ORDERED: PANTOPRAZOLE SO40 MG PO (12:43)
[2016-09-30] MEDS ORDERED: ACIDOPHILUS LA1 EACH PO (12:43)
[2016-09-30] MEDS ORDERED: FOLIC ACID1 MG PO (12:43)
[2016-09-30] MEDS ORDERED: THIAMINE HCL100 MG PO (12:44)
[2016-09-30] MEDS ORDERED: THERAGRAN1 TABLET PO (12:44)
[2016-09-30] MEDS ORDERED: ENDOCET 5-3251 EACH PO (12:48)
[2016-09-30] MEDS ORDERED: BACTRIM,SEPT1 TABLET PO (13:06)
[2016-09-30] MEDS ORDERED: GABAPENTIN600 MG PO (13:42)
[2016-09-30] MEDS ORDERED: PRISTIQ100 MG PO (13:42)
[2016-09-30] MEDS ORDERED: AMITRIPTYLINE100 MG PO (13:42)
[2016-09-30] MEDS ORDERED: ADDERALL XR 3030 MG PO (13:43)
== END 2016-09-30 16:13 | disposition home health service (06) | DRG 540 ==
LOC: EME 14:28 → EDOF 20:48 → 5EAST 21:22 → EDOF 21:22 → 5EAST 23:25
PROVIDERS: Emergency Medicine; Internal Medicine
DX: M86.172 Other acute osteomyelitis, left ankle and foot (principal); Z53.20 Procedure and treatment not carried out because of patient's decision for unspecified reasons; K29.70 Gastritis, unspecified, without bleeding; M54.9 Dorsalgia, unspecified; F10.239 Alcohol dependence with withdrawal, unspecified; Y90.6 Blood alcohol level of 120-199 mg/100 ml; E78.5 Hyperlipidemia, unspecified; I10 Essential (primary) hypertension; K21.9 Gastro-esophageal reflux disease without esophagitis; J44.9 Chronic obstructive pulmonary disease, unspecified; F43.10 Post-traumatic stress disorder, unspecified; F90.9 Attention-deficit hyperactivity disorder, unspecified type; G40.909 Epilepsy, unspecified, not intractable, without status epilepticus; G43.909 Migraine, unspecified, not intractable, without status migrainosus; F17.210 Nicotine dependence, cigarettes, uncomplicated; T33.831S Superficial frostbite of right toe(s), sequela; T33.832S Superficial frostbite of left toe(s), sequela; Z91.19 Patient's noncompliance with other medical treatment and regimen; Z85.038 Personal history of other malignant neoplasm of large intestine; Z90.49 Acquired absence of other specified parts of digestive tract; Z86.14 Personal history of Methicillin resistant Staphylococcus aureus infection; Z86.19 Personal history of other infectious and parasitic diseases; Z89.411 Acquired absence of right great toe; Z89.421 Acquired absence of other right toe(s)
CPT/HCPCS: 71020; 73630; 73720; 74176; 80048; 80053; 80202; 81003; 83605; 83735; 84484; 85025; 85027; 85610; 85651; 93005; 99281; 99285; G0480; J0744; J1650; J1885; J2060; J2405; J3370; J7042

== ENCOUNTER 2016-10-24 06:09 | Emergency (ER) | payer OTHER ==
[~2016-10-24] VITALS: Ht 170.2 cm; Wt 54.2 kg
[~2016-10-24 06:09] MED LIST changes: +ACIDOPHILUS LA1 EACH PO
[2016-10-24 07:31] LABS: HEMATOCRIT 41.5 % (38.0-50.0); MCH 28.5 PG (29.0-34.0); MCHC 32.5 G/DL (30.0-36.0); MCV 87.6 FL (86-99); MEAN PLAT.VOLUME 10.8 uM^3 (9.0-12.4); PLATELET COUNT 283 K/uL (156-360); RBC DIS.WIDTH-CV 15.7 % (11.8-14.6); RBC DIS.WIDTH-SD 50.4 % (39-53); RED BLOOD COUNT 4.74 M/uL (4.00-5.50); WHITE BLOOD COUNT 5.8 K/uL (4.1-10.2)
[2016-10-24 09:55] LABS: CHLORIDE 99 mEq/L (99-109); POTASSIUM 4.2 mEq/L (3.7-5.4); SODIUM 136 mEq/L (136-147)
[2016-10-24 09:58] LABS: GLUCOSE 106 mg/dL (70-99)
[2016-10-24 09:59] LABS: ANION GAP 13 MEQ/L (2-14)
[2016-10-24 10:01] LABS: ALKALINE PHOSPHATASE 97 IU/L (3-129); GFR ESTIMATE (CALCULATED) > 59 mL/min/
[2016-10-24 10:02] LABS: UREA NITROGEN (BUN) 16 mg/dL (9-23)
[2016-10-24 10:05] LABS: LIPASE 10 U/L (1.0-51.0)
[2016-10-24] MEDS ORDERED: ZOFRAN ODT4 MG PO (10:17)
[2016-10-24 10:41] VITALS: BP 178/108
== END 2016-10-24 10:43 | disposition home or self-care (01) ==
LOC: EME 06:09
DX: B34.9 Viral infection, unspecified (principal); F17.200 Nicotine dependence, unspecified, uncomplicated; Z95.1 Presence of aortocoronary bypass graft; Z87.442 Personal history of urinary calculi
CPT/HCPCS: 80053; 83690; 85027; 99281; 99283

== ENCOUNTER 2016-11-23 20:13 | Inpatient (IN) | payer OTHER ==
[~2016-11-23] VITALS: Ht 170.2 cm; Wt 60.1 kg
[2016-11-23 20:45] LABS: EOSINOPHIL (%) 3.1 % (0-5); EOSINOPHIL COUNT 0.2 K/uL (0-0.3); HEMATOCRIT 36.4 % (38.0-50.0); IMMATURE GRANULOCYTE (%) 0.6 % (0.0-0.7); INSTRUMENT ABS NEUTROPHIL CT 5.1 K/uL; MCH 28.9 PG (29.0-34.0); MCHC 32.4 G/DL (30.0-36.0); MONOCYTE (%) 9.1 % (3-12); MONOCYTE COUNT 0.6 K/uL (0-0.8); NEUTROPHIL COUNT 5.1 K/uL (1.8-6.4); PLATELET COUNT 129 K/uL (156-360); RBC DIS.WIDTH-CV 16.1 % (11.8-14.6); RBC DIS.WIDTH-SD 52.6 % (39-53); RED BLOOD COUNT 4.09 M/uL (4.00-5.50)
[2016-11-23 20:51] LABS: PROTHROMBIN TIME 10.9 SEC (10.2-12.9)
[2016-11-23 20:54] LABS: PTT 23.6 SEC (25-37)
[2016-11-23 20:56] LABS: CHLORIDE 110 mEq/L (99-109); POTASSIUM 3.5 mEq/L (3.7-5.4); SODIUM 144 mEq/L (136-147)
[2016-11-23 20:59] LABS: GLUCOSE 77 mg/dL (70-99)
[2016-11-23 21:00] LABS: ANION GAP 11 MEQ/L (2-14)
[2016-11-23 21:01] LABS: TOTAL BILIRUBIN 0.7 mg/dL (0.0-1.0)
[2016-11-23 21:02] LABS: SERUM ETHYL ALCOHOL < 10 mg/dL
[2016-11-23 21:03] LABS: ALKALINE PHOSPHATASE 98 IU/L (3-129); GFR ESTIMATE (CALCULATED) > 59 mL/min/
[2016-11-23 21:04] LABS: DIRECT BILIRUBIN 0.2 mg/dL (0.0-0.3)
[2016-11-23 21:05] LABS: UREA NITROGEN (BUN) 30 mg/dL (9-23)
[2016-11-23 21:06] LABS: SALICYLATE < 5.0 MG/DL (15-30); TROP-I INTERPRETATION NEGATIVE; TROPONIN-I < 0.01 ng/mL (0.0-0.30)
[2016-11-23 21:07] LABS: LIPASE 4 U/L (1.0-51.0); TOTAL CK 3554 IU/L (1-294)
[2016-11-23 21:10] LABS: CREATINE KINASE 3554 IU/L (1-294)
[2016-11-23 21:13] LABS: CK-MB 32.9 ng/mL (0.0-4.9)
[2016-11-23 23:34] LABS: ADD MIUA? YES; BILIRUBIN NEGATIVE; BLOOD NEGATIVE; COLOR YELLOW ((YELLOW)); GLUCOSE (STRIP) NEGATIVE; KETONES 20; LEUKOCYTES NEGATIVE; NITRITE NEGATIVE; PROTEIN (STRIP) 30; SPECIFIC GRAVITY 1.025 (1.000-1.030); UROBILINOGEN 0.2 MG/DL (0.2-1.0)
[2016-11-23 23:41] LABS: AMPHETAMINE NEGATIVE (500 ng/mL); BACTERIA RARE /HPF; BARBITURATES NEGATIVE (200 ng/mL); BENZODIAZEPINES NEGATIVE (150 ng/mL); CALCIUM OXALATE CRYSTALS 2+ /HPF; COCAINE NEGATIVE (150 ng/mL); EPITHELIAL CELLS NONE SEEN /HPF; HYALINE CASTS 0-5 /LPF; INTERNAL CONTROLS VALID? YES; METHADONE NEGATIVE (200 ng/mL); METHAMPHETAMINE NEGATIVE (500 ng/mL); MUCUS 2+ /LPF; OPIATES (MORPHINE) NEGATIVE (100 ng/mL); OXYCODONE NEGATIVE (100 ng/mL); PHENCYCLIDINE NEGATIVE (25 ng/mL); PROPOXYPHENE NEGATIVE (300 ng/mL); THC CANNABINOIDS NEGATIVE (50 ng/mL); TRICYCLIC ANTIDEPRESSANTS PRESUMPTIVE POSITIVE (300 ng/mL); UCUL ADDED? NO; WHITE BLOOD CELLS 0-5 /HPF (0-5)
[2016-11-24 02:48] LABS: HDL CHOLESTEROL 64 MG/DL (Desirable>=40); LDL CHOLESTEROL 67 mg/dL (Desirable<100); NON-HDL CHOLESTEROL 113 mg/dL (Desirable<160); TOTAL CHOLESTEROL 177 mg/dL (Desirable<200); TRIGLYCERIDES 232 MG/DL (Normal: <150)
[2016-11-24 03:40] VITALS: BP 159/90
[2016-11-24 04:12] LABS: POINT-OF-CARE METER ID UU14188625
[2016-11-24 04:25] LABS: METH RESISTANT S AUREUS PCR POSITIVE (NEGATIVE)
[2016-11-24 04:32] LABS: PROBE CHECK PASS
[2016-11-24 06:00] LABS: TROP-I INTERPRETATION NEGATIVE; TROPONIN-I < 0.01 ng/mL (0.0-0.30)
[2016-11-24 07:44] VITALS: BP 151/106
[2016-11-24 08:02] LABS: EOSINOPHIL (%) 7.1 % (0-5); EOSINOPHIL COUNT 0.4 K/uL (0-0.3); HEMATOCRIT 32.7 % (38.0-50.0); IMMATURE GRANULOCYTE (%) 0.7 % (0.0-0.7); INSTRUMENT ABS NEUTROPHIL CT 2.6 K/uL; LYMPHOCYTE COUNT 1.8 K/uL (1.0-2.8); MCH 30.3 PG (29.0-34.0); MCV 91.6 FL (86-99); MEAN PLAT.VOLUME 11.9 uM^3 (9.0-12.4); MONOCYTE (%) 11.8 % (3-12); MONOCYTE COUNT 0.7 K/uL (0-0.8); NEUTROPHIL (%) 47.6 % (45-76); NEUTROPHIL COUNT 2.6 K/uL (1.8-6.4); PLATELET COUNT 111 K/uL (156-360); RBC DIS.WIDTH-CV 16.2 % (11.8-14.6); RBC DIS.WIDTH-SD 54.5 % (39-53); RED BLOOD COUNT 3.57 M/uL (4.00-5.50); WHITE BLOOD COUNT 5.5 K/uL (4.1-10.2)
[2016-11-24 10:14] LABS: TOTAL CK 2147 IU/L (1-294)
[2016-11-24 10:15] LABS: CREATINE KINASE 2147 IU/L (1-294)
[2016-11-24 12:25] VITALS: BP 142/85
[2016-11-24 12:53] LABS: ALKALINE PHOSPHATASE 85 IU/L (3-129); ANION GAP 6 MEQ/L (2-14); CHLORIDE 108 MEQ/L (99-109); GFR ESTIMATE (CALCULATED) > 59 mL/min/; POTASSIUM 3.4 MEQ/L (3.7-5.4); SAMPLE HEMOLYSIS CHECK 0; SAMPLE ICTERIC CHECK 0; SAMPLE LIPEMIA CHECK 0; SODIUM 138 MEQ/L (136-147); UREA NITROGEN (BUN) 18 mg/dL (9-23)
[2016-11-24 12:54] LABS: GLUCOSE 155 mg/dL (70-99)
[2016-11-24 12:57] LABS: TROP-I INTERPRETATION NEGATIVE; TROPONIN-I 0.01 ng/mL (0.0-0.30)
[2016-11-24 15:09] VITALS: BP 177/83
[2016-11-24 20:00] VITALS: BP 138/90
[2016-11-25] VITALS: BP 144/92
[2016-11-25 04:46] VITALS: BP 165/109
[2016-11-25 07:05] LABS: HEMATOCRIT 42.5 % (38.0-50.0); MCH 28.8 PG (29.0-34.0); MCHC 31.8 G/DL (30.0-36.0); MCV 90.6 FL (86-99); MEAN PLAT.VOLUME 12.6 uM^3 (9.0-12.4); PLATELET COUNT 94 K/uL (156-360); RBC DIS.WIDTH-CV 15.7 % (11.8-14.6); RBC DIS.WIDTH-SD 51.8 % (39-53); RED BLOOD COUNT 4.69 M/uL (4.00-5.50); WHITE BLOOD COUNT 5.5 K/uL (4.1-10.2)
[2016-11-25 07:18] LABS: ANION GAP 8 MEQ/L (2-14); CHLORIDE 108 MEQ/L (99-109); CREATINE KINASE 915 IU/L (1-294); GFR ESTIMATE (CALCULATED) > 59 mL/min/; SAMPLE HEMOLYSIS CHECK 0; SAMPLE ICTERIC CHECK 0; SAMPLE LIPEMIA CHECK 0; SODIUM 138 MEQ/L (136-147); UREA NITROGEN (BUN) 10 mg/dL (9-23)
[2016-11-25 07:21] LABS: GLUCOSE 79 mg/dL (70-99)
[2016-11-25 07:24] VITALS: BP 166/90
[2016-11-25 08:32] LABS: Estimated Average Glucose 111 mg/dL (70-123); HEMOGLOBIN A1c (GLYCOHEMOGLOB) 5.5 % HGB (Below 5.7)
[2016-11-25 08:34] LABS: POINT-OF-CARE METER ID UU13113702
[2016-11-25 09:16] LABS: TROP-I INTERPRETATION NEGATIVE; TROPONIN-I < 0.01 ng/mL (0.0-0.30)
[2016-11-25] MEDS ORDERED: KEPPRA750 MG PO (10:34)
[2016-11-25] MEDS ORDERED: CATAPRES0.1 MG PO (10:37)
[2016-11-25] MEDS ORDERED: ADDERALL XR 3030 MG PO (10:38)
[2016-11-25] MEDS ORDERED: ELAVIL100 MG PO (10:39)
[2016-11-25] MEDS ORDERED: PRISTIQ100 MG PO (10:39)
[2016-11-25] MEDS ORDERED: NEURONTIN600 MG PO (10:39)
[2016-11-25] MEDS ORDERED: TRILEPTAL300 MG PO (10:41)
[2016-11-25 12:22] LABS: INTER. NORMALIZED RATIO 0.9; PROTHROMBIN TIME 9.6 SEC (10.2-12.9)
[2016-11-25 16:02] VITALS: BP 164/88
[2016-11-25 19:46] VITALS: BP 146/103
[2016-11-25 23:46] VITALS: BP 135/99
[2016-11-26 03:45] VITALS: BP 154/99
[2016-11-26 07:29] VITALS: BP 160/105
[2016-11-26 10:58] LABS: HEMATOCRIT 39.1 % (38.0-50.0); MCH 30.3 PG (29.0-34.0); MCHC 33.5 G/DL (30.0-36.0); MCV 90.5 FL (86-99); MEAN PLAT.VOLUME 11.8 uM^3 (9.0-12.4); PLATELET COUNT 108 K/uL (156-360); RBC DIS.WIDTH-CV 15.8 % (11.8-14.6); RBC DIS.WIDTH-SD 52.1 % (39-53); RED BLOOD COUNT 4.32 M/uL (4.00-5.50); WHITE BLOOD COUNT 5.2 K/uL (4.1-10.2)
[2016-11-26 11:00] VITALS: BP 156/102
[2016-11-26 11:25] LABS: ANION GAP 9 MEQ/L (2-14); CHLORIDE 106 MEQ/L (99-109); GFR ESTIMATE (CALCULATED) > 59 mL/min/; POTASSIUM 4.1 MEQ/L (3.7-5.4); SAMPLE HEMOLYSIS CHECK 0; SAMPLE ICTERIC CHECK 0; SAMPLE LIPEMIA CHECK 0; SODIUM 138 MEQ/L (136-147); UREA NITROGEN (BUN) 10 mg/dL (9-23)
[2016-11-26 11:27] LABS: GLUCOSE 122 mg/dL (70-99)
[2016-11-26] MEDS ORDERED: XARELTO1 EACH PO (13:52)
[2016-11-26 14:54] VITALS: BP 152/82
== END 2016-11-26 16:50 | disposition home or self-care (01) | DRG 557 ==
LOC: EME → EDBD 20:13 → EME 20:13 → EDOF 11-24 01:21 → 5SOUTH 11-24 01:21 → ENRESERV 11-24 01:25 → 5SOUTH 11-24 03:22
PROVIDERS: Emergency Medicine; Hospitalist; Internal Medicine; Physician Assistant Medical
DX: M62.82 Rhabdomyolysis (principal); I26.09 Other pulmonary embolism with acute cor pulmonale; G93.41 Metabolic encephalopathy; J90 Pleural effusion, not elsewhere classified; I10 Essential (primary) hypertension; G40.909 Epilepsy, unspecified, not intractable, without status epilepticus; Z90.49 Acquired absence of other specified parts of digestive tract; Z85.038 Personal history of other malignant neoplasm of large intestine; E78.5 Hyperlipidemia, unspecified; F10.239 Alcohol dependence with withdrawal, unspecified; J98.11 Atelectasis; J43.9 Emphysema, unspecified; F17.200 Nicotine dependence, unspecified, uncomplicated; I73.9 Peripheral vascular disease, unspecified; G89.29 Other chronic pain; M79.605 Pain in left leg; M79.604 Pain in right leg; R07.81 Pleurodynia; F43.10 Post-traumatic stress disorder, unspecified; F90.9 Attention-deficit hyperactivity disorder, unspecified type; Z95.1 Presence of aortocoronary bypass graft; Z87.442 Personal history of urinary calculi; M54.9 Dorsalgia, unspecified
CPT/HCPCS: 70450; 70551; 71275; 80048; 80053; 80061; 80076; 80306 90; 81003; 82550; 82550 91; 82553; 82948; 83036; 83605; 83690; 83735; 83880; 84100; 84484; 85025; 85027; 85379; 85610; 85730; 87641; 93005; 95819; 99281; 99285; G0480; J0360; J1650; J1885; J1953; J3411; J3475; J7030; J7050

== ENCOUNTER 2016-11-27 03:19 | Emergency (ER) | payer OTHER ==
[~2016-11-27] VITALS: Ht 172.7 cm; Wt 59.2 kg
[~2016-11-27 03:19] MED LIST changes: +KEPPRA750 MG PO; +TRILEPTAL300 MG PO; +XARELTO1 EACH PO
[2016-11-27 04:12] LABS: HEMATOCRIT 34.6 % (38.0-50.0); MCH 29.2 PG (29.0-34.0); MCHC 32.9 G/DL (30.0-36.0); MCV 88.7 FL (86-99); MEAN PLAT.VOLUME 11.3 uM^3 (9.0-12.4); PLATELET COUNT 116 K/uL (156-360); RBC DIS.WIDTH-CV 15.8 % (11.8-14.6); RBC DIS.WIDTH-SD 50.9 % (39-53); WHITE BLOOD COUNT 5.8 K/uL (4.1-10.2)
[2016-11-27 04:23] LABS: CHLORIDE 110 mEq/L (99-109); POTASSIUM 3.9 mEq/L (3.7-5.4)
[2016-11-27 04:24] LABS: SODIUM 140 mEq/L (136-147)
[2016-11-27 04:25] LABS: GLUCOSE 154 mg/dL (70-99)
[2016-11-27 04:27] LABS: ANION GAP 12 MEQ/L (2-14)
[2016-11-27 04:29] LABS: GFR ESTIMATE (CALCULATED) > 59 mL/min/
[2016-11-27 04:30] LABS: UREA NITROGEN (BUN) 13 mg/dL (9-23)
[2016-11-27 04:32] LABS: TROP-I INTERPRETATION NEGATIVE; TROPONIN-I < 0.01 ng/mL (0.0-0.30)
[2016-11-27 06:15] VITALS: BP 97/66
== END 2016-11-27 06:16 | disposition home or self-care (01) ==
LOC: EME → EDBD 03:19 → EME 03:19
PROVIDERS: Emergency Medicine
DX: F10.229 Alcohol dependence with intoxication, unspecified (principal); J98.11 Atelectasis; I10 Essential (primary) hypertension; E78.5 Hyperlipidemia, unspecified; F41.9 Anxiety disorder, unspecified; Z79.01 Long term (current) use of anticoagulants; Z85.038 Personal history of other malignant neoplasm of large intestine; Z90.49 Acquired absence of other specified parts of digestive tract; F17.200 Nicotine dependence, unspecified, uncomplicated
CPT/HCPCS: 70450; 71010; 80048; 84484; 85027; 93005; 99281; 99284; J7030

== ENCOUNTER 2016-12-02 17:19 | Observation (INO) | payer OTHER ==
[~2016-12-02] VITALS: Ht 170.2 cm; Wt 62.9 kg
[2016-12-02 19:39] LABS: EOSINOPHIL (%) 3.8 % (0-5); EOSINOPHIL COUNT 0.3 K/uL (0-0.3); HEMATOCRIT 34.4 % (38.0-50.0); IMMATURE GRANULOCYTE (%) 0.7 % (0.0-0.7); IMMATURE GRANULOCYTE COUNT 0.1 K/uL; INSTRUMENT ABS NEUTROPHIL CT 4.3 K/uL; LYMPHOCYTE COUNT 1.5 K/uL (1.0-2.8); MCH 29.4 PG (29.0-34.0); MCHC 32.8 G/DL (30.0-36.0); MCV 89.6 FL (86-99); MEAN PLAT.VOLUME 11.7 uM^3 (9.0-12.4); MONOCYTE (%) 9.3 % (3-12); MONOCYTE COUNT 0.6 K/uL (0-0.8); NEUTROPHIL (%) 63.3 % (45-76); NEUTROPHIL COUNT 4.3 K/uL (1.8-6.4); RBC DIS.WIDTH-CV 16.4 % (11.8-14.6); RBC DIS.WIDTH-SD 53.5 % (39-53); RED BLOOD COUNT 3.84 M/uL (4.00-5.50); WHITE BLOOD COUNT 6.8 K/uL (4.1-10.2)
[2016-12-02 19:41] LABS: PLATELET COUNT 204 K/uL (156-360)
[2016-12-02 19:46] LABS: CHLORIDE 107 mEq/L (99-109); POTASSIUM 3.8 mEq/L (3.7-5.4); SODIUM 141 mEq/L (136-147)
[2016-12-02 19:48] LABS: GLUCOSE 83 mg/dL (70-99)
[2016-12-02 19:49] LABS: ANION GAP 12 MEQ/L (2-14)
[2016-12-02 19:50] LABS: TOTAL BILIRUBIN 0.2 mg/dL (0.0-1.0)
[2016-12-02 19:51] LABS: SERUM ETHYL ALCOHOL < 10 mg/dL
[2016-12-02 19:52] LABS: ALKALINE PHOSPHATASE 81 IU/L (3-129); GFR ESTIMATE (CALCULATED) > 59 mL/min/
[2016-12-02 19:54] LABS: UREA NITROGEN (BUN) 24 mg/dL (9-23)
[2016-12-02 20:57] LABS: ADD MIUA? YES; BILIRUBIN NEGATIVE; BLOOD NEGATIVE; COLOR YELLOW ((YELLOW)); GLUCOSE (STRIP) NEGATIVE; KETONES NEGATIVE; LEUKOCYTES NEGATIVE; NITRITE NEGATIVE; PROTEIN (STRIP) NEGATIVE; UROBILINOGEN 0.2 MG/DL (0.2-1.0)
[2016-12-02 21:08] LABS: BACTERIA RARE /HPF; EPITHELIAL CELLS NONE SEEN /HPF; MUCUS TRACE /LPF; RED BLOOD CELLS 0-5 /HPF (0-5); UNCLASSIFIED CRYSTALS 1+ /HPF; WHITE BLOOD CELLS 0-5 /HPF (0-5)
[2016-12-03 00:42] LABS: TROP-I INTERPRETATION NEGATIVE; TROPONIN-I < 0.01 ng/mL (0.0-0.30)
[2016-12-03 01:59] LABS: MAGNESIUM 2.2 mg/dL (1.3-2.7)
[2016-12-03 02:02] VITALS: BP 121/82
[2016-12-03 03:36] LABS: METH RESISTANT S AUREUS PCR POSITIVE (NEGATIVE)
[2016-12-03 03:38] LABS: PROBE CHECK PASS
[2016-12-03 05:06] LABS: HEMATOCRIT 35.5 % (38.0-50.0); MCH 28.9 PG (29.0-34.0); MCHC 31.5 G/DL (30.0-36.0); MCV 91.7 FL (86-99); MEAN PLAT.VOLUME 11.3 uM^3 (9.0-12.4); PLATELET COUNT 190 K/uL (156-360); RBC DIS.WIDTH-CV 16.4 % (11.8-14.6); RBC DIS.WIDTH-SD 54.6 % (39-53); RED BLOOD COUNT 3.87 M/uL (4.00-5.50); WHITE BLOOD COUNT 4.9 K/uL (4.1-10.2)
[2016-12-03 05:24] LABS: AMPHETAMINES QUANT VALUE 0 NG/ML; BARBITUATES QUANT VALUE 0 NG/ML; BENZODIAZEPINES, URINE SCREEN POSITIVE (200 ng/mL); MARIJUANA QUANT VALUE 0 NG/ML; OPIATES QUANTITATIVE VALUE 0 NG/ML; PHENCYCLIDINE QUANT VALUE 0 NG/ML
[2016-12-03 05:25] LABS: TROP-I INTERPRETATION NEGATIVE; TROPONIN-I 0.01 ng/mL (0.0-0.30)
[2016-12-03 05:48] LABS: ANION GAP 7 MEQ/L (2-14); CHLORIDE 108 MEQ/L (99-109); GFR ESTIMATE (CALCULATED) > 59 mL/min/; GLUCOSE 84 mg/dL (70-99); POTASSIUM 4.3 MEQ/L (3.7-5.4); SAMPLE HEMOLYSIS CHECK 0; SAMPLE ICTERIC CHECK 0; SAMPLE LIPEMIA CHECK 0; SODIUM 141 MEQ/L (136-147); UREA NITROGEN (BUN) 20 mg/dL (9-23)
[2016-12-03 09:13] VITALS: BP 141/97
[2016-12-03] MEDS ORDERED: ENDOCET 5-3251 EACH PO (10:20)
== END 2016-12-03 11:27 ==
LOC: EME 17:19 → ENPENDDIS 12-03 → EDOF 12-03 00:56 → ENRESERV 12-03 00:58 → 5WEST 12-03 01:43
PROVIDERS: Emergency Medicine; Hospitalist; Physician Assistant
DX: R07.89 Other chest pain (principal); Z86.711 Personal history of pulmonary embolism; M79.604 Pain in right leg; F10.20 Alcohol dependence, uncomplicated; F17.200 Nicotine dependence, unspecified, uncomplicated; Z86.19 Personal history of other infectious and parasitic diseases; I10 Essential (primary) hypertension; E78.5 Hyperlipidemia, unspecified; F43.10 Post-traumatic stress disorder, unspecified; Z85.038 Personal history of other malignant neoplasm of large intestine; K21.9 Gastro-esophageal reflux disease without esophagitis; Z88.5 Allergy status to narcotic agent
CPT/HCPCS: 70450; 71010; 80048; 80053; 80306 90; 81003; 83735; 84484; 85025; 85027; 87641; 93005; 93971; 99281; 99285; G0378; G0480

== ENCOUNTER 2016-12-31 11:02 | Emergency (ER) | payer OTHER ==
[~2016-12-31] VITALS: Ht 170.2 cm; Wt 60.4 kg
[2016-12-31 12:18] LABS: HEMATOCRIT 38.6 % (38.0-50.0); MCH 29.2 PG (29.0-34.0); MCHC 32.9 G/DL (30.0-36.0); MCV 88.7 FL (86-99); MEAN PLAT.VOLUME 11.6 uM^3 (9.0-12.4); PLATELET COUNT 186 K/uL (156-360); RBC DIS.WIDTH-CV 16.3 % (11.8-14.6); RBC DIS.WIDTH-SD 53.3 % (39-53); RED BLOOD COUNT 4.35 M/uL (4.00-5.50); WHITE BLOOD COUNT 6.5 K/uL (4.1-10.2)
[2016-12-31 12:27] LABS: CHLORIDE 107 mEq/L (99-109); POTASSIUM 3.8 mEq/L (3.7-5.4); SODIUM 144 mEq/L (136-147)
[2016-12-31 12:29] LABS: GLUCOSE 88 mg/dL (70-99)
[2016-12-31 12:30] LABS: ANION GAP 14 MEQ/L (2-14)
[2016-12-31 12:33] LABS: GFR ESTIMATE (CALCULATED) > 59 mL/min/
[2016-12-31 12:34] LABS: UREA NITROGEN (BUN) 16 mg/dL (9-23)
[2016-12-31 12:40] LABS: TROP-I INTERPRETATION NEGATIVE; TROPONIN-I < 0.01 ng/mL (0.0-0.30)
[2016-12-31 15:15] LABS: TROP-I INTERPRETATION NEGATIVE; TROPONIN-I < 0.01 ng/mL (0.0-0.30)
[2016-12-31 16:48] VITALS: BP 153/99
== END 2016-12-31 16:59 | disposition home or self-care (01) ==
LOC: EME 11:02
PROVIDERS: Emergency Medicine
DX: R07.89 Other chest pain (principal); E78.5 Hyperlipidemia, unspecified; Z87.442 Personal history of urinary calculi; R56.9 Unspecified convulsions; Z86.711 Personal history of pulmonary embolism; F17.200 Nicotine dependence, unspecified, uncomplicated
CPT/HCPCS: 71020; 71275; 80048; 84484; 85027; 93005; 99281; 99285; J1885; J2270; J7030

== ENCOUNTER 2017-01-02 11:05 | Emergency (ER) | payer OTHER ==
[~2017-01-02] VITALS: Ht 170.2 cm; Wt 62.7 kg
[2017-01-02] MEDS ORDERED: KEFLEX500 MG PO (12:26)
[2017-01-02 12:42] VITALS: BP 167/98
== END 2017-01-02 12:42 | disposition home or self-care (01) ==
LOC: EME 11:05
DX: R23.8 Other skin changes (principal); M79.89 Other specified soft tissue disorders; F17.200 Nicotine dependence, unspecified, uncomplicated
CPT/HCPCS: 99281; 99283

== ENCOUNTER 2017-01-07 17:29 | Observation (INO) | payer OTHER ==
[~2017-01-07] VITALS: Ht 170.2 cm; Wt 69.4 kg
[2017-01-07 18:06] LABS: HEMATOCRIT 32.3 % (38.0-50.0); MCH 29.4 PG (29.0-34.0); MCHC 32.8 G/DL (30.0-36.0); MCV 89.5 FL (86-99); MEAN PLAT.VOLUME 10.3 uM^3 (9.0-12.4); PLATELET COUNT 189 K/uL (156-360); RBC DIS.WIDTH-CV 15.9 % (11.8-14.6); RBC DIS.WIDTH-SD 52.5 % (39-53); RED BLOOD COUNT 3.61 M/uL (4.00-5.50); WHITE BLOOD COUNT 5.7 K/uL (4.1-10.2)
[2017-01-07 18:11] LABS: PROTHROMBIN TIME 30.1 SEC (10.2-12.9)
[2017-01-07 18:13] LABS: PTT 38.7 SEC (25-37)
[2017-01-07 18:13] LABS: CREATININE 1.2 mg/dL (0.6-1.3); POTASSIUM 3.9 mEq/L (3.7-5.4)
[2017-01-07 18:16] LABS: CHLORIDE 107 mEq/L (99-109); INTER. NORMALIZED RATIO 2.6; POTASSIUM 3.9 mEq/L (3.7-5.4); SODIUM 140 mEq/L (136-147)
[2017-01-07 18:18] LABS: GLUCOSE 99 mg/dL (70-99)
[2017-01-07 18:19] LABS: ANION GAP 11 MEQ/L (2-14)
[2017-01-07 18:21] LABS: GFR ESTIMATE (CALCULATED) > 59 mL/min/
[2017-01-07 18:22] LABS: UREA NITROGEN (BUN) 17 mg/dL (9-23)
[2017-01-07 18:26] LABS: TROP-I INTERPRETATION NEGATIVE; TROPONIN-I < 0.01 ng/mL (0.0-0.30)
[2017-01-07 19:34] LABS: SERUM ETHYL ALCOHOL < 10 mg/dL
[2017-01-07 21:42] LABS: MAGNESIUM 1.6 mg/dL (1.3-2.7)
[2017-01-07 21:43] LABS: TOTAL BILIRUBIN 0.2 mg/dL (0.0-1.0)
[2017-01-07 21:44] LABS: ALKALINE PHOSPHATASE 74 IU/L (3-129)
[2017-01-07 21:47] LABS: DIRECT BILIRUBIN 0.1 mg/dL (0.0-0.3)
[2017-01-07] MEDS ORDERED: XARELTO20 MG PO (23:32)
[2017-01-07] MEDS ORDERED: CEROVITE ADVAN1 EACH PO (23:37)
[2017-01-07] MEDS ORDERED: PANTOPRAZOLE SO40 MG PO (23:37)
[2017-01-07] MEDS ORDERED: THIAMINE HCL100 MG PO (23:39)
[2017-01-08 00:50] LABS: TROP-I INTERPRETATION NEGATIVE; TROPONIN-I < 0.01 ng/mL (0.0-0.30)
[2017-01-08 03:04] LABS: AMPHETAMINES QUANT VALUE 0 NG/ML; BARBITUATES QUANT VALUE 0 NG/ML; BENZODIAZEPINES QUANT VALUE 0 NG/ML; BENZODIAZEPINES, URINE SCREEN Negative (200 ng/mL); MARIJUANA QUANT VALUE 0 NG/ML; PHENCYCLIDINE QUANT VALUE 0 NG/ML
[2017-01-08 03:18] LABS: ADD MIUA? NO; BILIRUBIN NEGATIVE; BLOOD NEGATIVE; COLOR YELLOW ((YELLOW)); GLUCOSE (STRIP) NEGATIVE; KETONES NEGATIVE; LEUKOCYTES NEGATIVE; NITRITE NEGATIVE; PROTEIN (STRIP) NEGATIVE; UCUL ADDED? NO; UROBILINOGEN 0.2 MG/DL (0.2-1.0)
[2017-01-08 06:24] LABS: HEMATOCRIT 30.2 % (38.0-50.0); MCH 29.4 PG (29.0-34.0); MCHC 31.8 G/DL (30.0-36.0); MCV 92.6 FL (86-99); MEAN PLAT.VOLUME 10.7 uM^3 (9.0-12.4); PLATELET COUNT 151 K/uL (156-360); RBC DIS.WIDTH-CV 16.1 % (11.8-14.6); RBC DIS.WIDTH-SD 54.6 % (39-53); RED BLOOD COUNT 3.26 M/uL (4.00-5.50); WHITE BLOOD COUNT 5.1 K/uL (4.1-10.2)
[2017-01-08 06:31] LABS: PROTHROMBIN TIME 11.7 SEC (10.2-12.9)
[2017-01-08 06:32] LABS: INTER. NORMALIZED RATIO 1.1
[2017-01-08 06:33] LABS: CHLORIDE 113 mEq/L (99-109); SODIUM 142 mEq/L (136-147)
[2017-01-08 06:34] LABS: MAGNESIUM 1.7 mg/dL (1.3-2.7)
[2017-01-08 06:36] LABS: GLUCOSE 117 mg/dL (70-99)
[2017-01-08 06:37] LABS: ANION GAP 8 MEQ/L (2-14)
[2017-01-08 06:38] LABS: TOTAL BILIRUBIN 0.3 mg/dL (0.0-1.0)
[2017-01-08 06:39] LABS: ALKALINE PHOSPHATASE 65 IU/L (3-129)
[2017-01-08 06:40] LABS: GFR ESTIMATE (CALCULATED) > 59 mL/min/
[2017-01-08 06:41] LABS: UREA NITROGEN (BUN) 14 mg/dL (9-23)
[2017-01-08 06:46] LABS: TROP-I INTERPRETATION NEGATIVE; TROPONIN-I < 0.01 ng/mL (0.0-0.30)
[2017-01-08 06:57] LABS: INTACT PARATHYROID HORMONE 114 pg/mL (10-69)
[2017-01-08 06:58] LABS: SAMPLE HEMOLYSIS CHECK 0; SAMPLE ICTERIC CHECK 0; SAMPLE LIPEMIA CHECK 0
[2017-01-08 07:04] LABS: HDL CHOLESTEROL 61 MG/DL (Desirable>=40); LDL CHOLESTEROL 85 mg/dL (Desirable<100); NON-HDL CHOLESTEROL 98 mg/dL (Desirable<160); TOTAL CHOLESTEROL 159 mg/dL (Desirable<200); TRIGLYCERIDES 65 MG/DL (Normal: <150)
[2017-01-08 07:07] LABS: C-REACTIVE PROTEIN < 1.0 MG/L (0-10)
[2017-01-08 11:05] VITALS: BP 151/93
[2017-01-08] MEDS ORDERED: ENDOCET 5-3251 EACH PO (11:26)
[2017-01-08] MEDS ORDERED: DEXAMETHASONE0.5 MG PO (11:26)
== END 2017-01-08 15:06 | disposition home or self-care (01) ==
LOC: EME 17:29 → EDOF 21:08 → ENRESERV 21:11 → 5WEST 01-08 11:02
PROVIDERS: Emergency Medicine; Physician Assistant Medical
DX: E27.40 Unspecified adrenocortical insufficiency (principal); R07.89 Other chest pain; G89.29 Other chronic pain; M47.9 Spondylosis, unspecified; I95.9 Hypotension, unspecified; I10 Essential (primary) hypertension; Z85.038 Personal history of other malignant neoplasm of large intestine; G40.909 Epilepsy, unspecified, not intractable, without status epilepticus; K21.9 Gastro-esophageal reflux disease without esophagitis; F90.9 Attention-deficit hyperactivity disorder, unspecified type; F43.10 Post-traumatic stress disorder, unspecified; F10.20 Alcohol dependence, uncomplicated; Y90.0 Blood alcohol level of less than 20 mg/100 ml; Z87.01 Personal history of pneumonia (recurrent); F17.210 Nicotine dependence, cigarettes, uncomplicated; Z79.01 Long term (current) use of anticoagulants; R79.1 Abnormal coagulation profile; E83.42 Hypomagnesemia; E78.5 Hyperlipidemia, unspecified; Z87.442 Personal history of urinary calculi; G62.9 Polyneuropathy, unspecified; F32.9 Major depressive disorder, single episode, unspecified
CPT/HCPCS: 71275; 76705; 80047; 80048; 80053; 80061; 80076; 80306 90; 81003; 82140; 82533 91; 82550 91; 82607; 83605; 83735; 83970; 84443; 84484; 85027; 85610; 85730; 86140; 93005; 99281; 99285; G0378; G0480; J2270; J3411; J7030; J7042

== ENCOUNTER 2017-01-14 12:54 | Emergency (ER) | payer OTHER ==
[~2017-01-14] VITALS: Ht 170.2 cm; Wt 61.2 kg
[~2017-01-14 12:54] MED LIST changes: +CEROVITE ADVAN1 EACH PO; +DEXAMETHASONE0.5 MG PO; +XARELTO20 MG PO
[2017-01-14] MEDS ORDERED: KEFLEX500 MG PO (16:12)
[2017-01-14] MEDS ORDERED: NAPROSYN500 MG PO (16:12)
[2017-01-14 16:48] VITALS: BP 140/93
== END 2017-01-14 16:49 | disposition home or self-care (01) ==
LOC: EME 12:54
DX: E11.621 Type 2 diabetes mellitus with foot ulcer (principal); B35.3 Tinea pedis; G89.29 Other chronic pain; T33.832S Superficial frostbite of left toe(s), sequela; T69 Other effects of reduced temperature; X31.XXXS Exposure to excessive natural cold, sequela; Z79.01 Long term (current) use of anticoagulants; F17.210 Nicotine dependence, cigarettes, uncomplicated; Z71.6 Tobacco abuse counseling
CPT/HCPCS: 73660; 99281; 99284; J3010

== ENCOUNTER 2017-01-16 18:51 | Emergency (ER) | payer OTHER ==
[~2017-01-16] VITALS: Ht 170.2 cm; Wt 61.8 kg
[2017-01-16] MEDS ORDERED: ROXICODONE5 MG PO (21:07)
[2017-01-16 21:15] VITALS: BP 139/99
[2017-01-17] MEDS ORDERED: CLEOCIN300 MG PO (20:49)
== END 2017-01-16 21:20 | disposition home or self-care (01) ==
LOC: EME 18:51 → EXP 18:51
DX: M79.675 Pain in left toe(s) (principal); G89.29 Other chronic pain; T33.832S Superficial frostbite of left toe(s), sequela; X31.XXXS Exposure to excessive natural cold, sequela; F17.200 Nicotine dependence, unspecified, uncomplicated
CPT/HCPCS: 99281; 99283

== ENCOUNTER 2017-01-17 17:10 | Emergency (ER) | payer OTHER ==
[~2017-01-17] VITALS: Ht 170.2 cm; Wt 62.3 kg
[~2017-01-17 17:10] MED LIST changes: +ROXICODONE5 MG PO
[2017-01-17 17:46] LABS: MCH 29.3 PG (29.0-34.0); MCHC 32.9 G/DL (30.0-36.0); MCV 89.1 FL (86-99); MEAN PLAT.VOLUME 10.7 uM^3 (9.0-12.4); PLATELET COUNT 304 K/uL (156-360); RBC DIS.WIDTH-CV 16.1 % (11.8-14.6); RBC DIS.WIDTH-SD 52.6 % (39-53); WHITE BLOOD COUNT 9.1 K/uL (4.1-10.2)
[2017-01-17 17:57] LABS: CHLORIDE 108 mEq/L (99-109); POTASSIUM 3.8 mEq/L (3.7-5.4); SODIUM 145 mEq/L (136-147)
[2017-01-17 17:59] LABS: GLUCOSE 116 mg/dL (70-99)
[2017-01-17 18:00] LABS: ANION GAP 16 MEQ/L (2-14)
[2017-01-17 18:03] LABS: GFR ESTIMATE (CALCULATED) > 59 mL/min/; UREA NITROGEN (BUN) 24 mg/dL (9-23)
[2017-01-17] MEDS ORDERED: CLEOCIN300 MG PO (20:49)
[2017-01-17 20:57] VITALS: BP 139/97
== END 2017-01-17 21:04 | disposition home or self-care (01) ==
LOC: EME 17:10
PROVIDERS: Emergency Medicine
DX: L03.031 Cellulitis of right toe (principal)
CPT/HCPCS: 80048; 83605; 85027; 99281; 99284

== ENCOUNTER 2017-01-21 15:04 | Emergency (ER) | payer OTHER | END 2017-01-21 16:19 | disposition left against medical advice (07) | LOC: EME 15:04 | DX: M79.675 Pain in left toe(s) (principal); Z53.21 Procedure and treatment not carried out due to patient leaving prior to being seen by health care provider ==

== ENCOUNTER 2017-01-30 19:24 | Emergency (ER) | payer OTHER ==
[~2017-01-30] VITALS: Ht 170.2 cm; Wt 136.8 kg
[2017-01-30 20:20] LABS: HEMATOCRIT 39.9 % (38.0-50.0); MCHC 32.6 G/DL (30.0-36.0); MCV 91.9 FL (86-99); MEAN PLAT.VOLUME 10.8 uM^3 (9.0-12.4); PLATELET COUNT 237 K/uL (156-360); RBC DIS.WIDTH-CV 16.2 % (11.8-14.6); RBC DIS.WIDTH-SD 54.7 % (39-53); RED BLOOD COUNT 4.34 M/uL (4.00-5.50); WHITE BLOOD COUNT 7.3 K/uL (4.1-10.2)
[2017-01-30 20:34] LABS: CHLORIDE 112 mEq/L (99-109); POTASSIUM 3.5 mEq/L (3.7-5.4); SODIUM 145 mEq/L (136-147)
[2017-01-30 20:36] LABS: GLUCOSE 81 mg/dL (70-99)
[2017-01-30 20:37] LABS: ANION GAP 12 MEQ/L (2-14)
[2017-01-30 20:39] LABS: GFR ESTIMATE (CALCULATED) > 59 mL/min/
[2017-01-30 20:40] LABS: UREA NITROGEN (BUN) 22 mg/dL (9-23)
[2017-01-30 20:43] LABS: TROP-I INTERPRETATION NEGATIVE; TROPONIN-I < 0.01 ng/mL (0.0-0.30)
[2017-01-30 22:10] LABS: TROP-I INTERPRETATION NEGATIVE; TROPONIN-I 0.01 ng/mL (0.0-0.30)
[2017-01-30 23:33] VITALS: BP 120/90
== END 2017-01-30 23:33 | disposition home or self-care (01) ==
LOC: EME 19:24
PROVIDERS: Emergency Medicine
DX: R07.9 Chest pain, unspecified (principal); M79.676 Pain in unspecified toe(s); M79.644 Pain in right finger(s); R06.02 Shortness of breath; F10.129 Alcohol abuse with intoxication, unspecified; I10 Essential (primary) hypertension; Z79.01 Long term (current) use of anticoagulants; Z85.038 Personal history of other malignant neoplasm of large intestine; Z90.49 Acquired absence of other specified parts of digestive tract; Z87.442 Personal history of urinary calculi; F17.200 Nicotine dependence, unspecified, uncomplicated
CPT/HCPCS: 71020; 80048; 83605; 84484; 85027; 93005; 99281; 99284

== ENCOUNTER 2017-01-31 11:59 | Emergency (ER) | payer OTHER ==
[~2017-01-31] VITALS: Ht 170.2 cm; Wt 60.3 kg
[2017-01-31 13:08] VITALS: BP 142/109
== END 2017-01-31 13:45 | disposition home or self-care (01) ==
LOC: EME 11:59
DX: F10.10 Alcohol abuse, uncomplicated (principal); I10 Essential (primary) hypertension; E78.5 Hyperlipidemia, unspecified; F17.200 Nicotine dependence, unspecified, uncomplicated; F41.9 Anxiety disorder, unspecified; G40.909 Epilepsy, unspecified, not intractable, without status epilepticus; Z85.038 Personal history of other malignant neoplasm of large intestine
CPT/HCPCS: 99281; 99283

== ENCOUNTER 2017-02-03 15:48 | Emergency (ER) | payer OTHER ==
[~2017-02-03] VITALS: Ht 167.6 cm; Wt 64.8 kg
[2017-02-03] MEDS ORDERED: KEPPRA750 MG PO (19:37)
[2017-02-03] MEDS ORDERED: MOTRIN800 MG PO (19:37)
[2017-02-03 20:00] VITALS: BP 95/67
== END 2017-02-03 20:00 | disposition home or self-care (01) ==
LOC: EME 15:48
DX: G89.29 Other chronic pain (principal); R07.9 Chest pain, unspecified; M79.674 Pain in right toe(s); Z89.421 Acquired absence of other right toe(s); Z79.01 Long term (current) use of anticoagulants; F17.200 Nicotine dependence, unspecified, uncomplicated
CPT/HCPCS: 93005; 99281; 99283

== ENCOUNTER 2017-02-06 21:21 | Observation (INO) | payer OTHER ==
[~2017-02-06] VITALS: Ht 167.6 cm; Wt 63.7 kg
[~2017-02-06 21:21] MED LIST changes: +MOTRIN800 MG PO
[2017-02-07 00:08] LABS: HEMATOCRIT 40.3 % (38.0-50.0); MCH 29.6 PG (29.0-34.0); MCHC 32.5 G/DL (30.0-36.0); MEAN PLAT.VOLUME 10.7 uM^3 (9.0-12.4); PLATELET COUNT 264 K/uL (156-360); RBC DIS.WIDTH-CV 16.2 % (11.8-14.6); RBC DIS.WIDTH-SD 53.5 % (39-53); RED BLOOD COUNT 4.43 M/uL (4.00-5.50)
[2017-02-07 00:20] LABS: CHLORIDE 109 mEq/L (99-109); POTASSIUM 3.4 mEq/L (3.7-5.4); SODIUM 141 mEq/L (136-147)
[2017-02-07 00:21] LABS: GLUCOSE 127 mg/dL (70-99)
[2017-02-07 00:23] LABS: ANION GAP 20 MEQ/L (2-14)
[2017-02-07 00:25] LABS: GFR ESTIMATE (CALCULATED) 51 mL/min/; SERUM ETHYL ALCOHOL 104 mg/dL
[2017-02-07 00:26] LABS: UREA NITROGEN (BUN) 32 mg/dL (9-23)
[2017-02-07 02:38] LABS: HEMATOCRIT 34.6 % (38.0-50.0); MCH 29.9 PG (29.0-34.0); MCHC 32.7 G/DL (30.0-36.0); MCV 91.5 FL (86-99); MEAN PLAT.VOLUME 10.5 uM^3 (9.0-12.4); PLATELET COUNT 213 K/uL (156-360); RBC DIS.WIDTH-CV 16.1 % (11.8-14.6); RBC DIS.WIDTH-SD 53.8 % (39-53); RED BLOOD COUNT 3.78 M/uL (4.00-5.50); WHITE BLOOD COUNT 6.6 K/uL (4.1-10.2)
[2017-02-07 02:48] LABS: CHLORIDE 116 mEq/L (99-109); POTASSIUM 3.2 mEq/L (3.7-5.4); SODIUM 142 mEq/L (136-147)
[2017-02-07 02:50] LABS: GLUCOSE 139 mg/dL (70-99)
[2017-02-07 02:51] LABS: ANION GAP 11 MEQ/L (2-14)
[2017-02-07 02:54] LABS: GFR ESTIMATE (CALCULATED) > 59 mL/min/
[2017-02-07 02:55] LABS: UREA NITROGEN (BUN) 27 mg/dL (9-23)
[2017-02-07 04:42] LABS: TOTAL BILIRUBIN 0.1 mg/dL (0.0-1.0)
[2017-02-07 04:43] LABS: ALKALINE PHOSPHATASE 66 IU/L (3-129)
[2017-02-07 04:46] LABS: DIRECT BILIRUBIN 0.1 mg/dL (0.0-0.3)
[2017-02-07 05:30] VITALS: BP 142/80
[2017-02-07 09:34] LABS: HEMATOCRIT 35.1 % (38.0-50.0); MCH 29.3 PG (29.0-34.0); MCHC 31.6 G/DL (30.0-36.0); MCV 92.6 FL (86-99); MEAN PLAT.VOLUME 10.9 uM^3 (9.0-12.4); PLATELET COUNT 201 K/uL (156-360); RBC DIS.WIDTH-CV 16.3 % (11.8-14.6); RBC DIS.WIDTH-SD 54.6 % (39-53); RED BLOOD COUNT 3.79 M/uL (4.00-5.50); WHITE BLOOD COUNT 7.4 K/uL (4.1-10.2)
[2017-02-07 10:01] LABS: ANION GAP 5 MEQ/L (2-14); CHLORIDE 112 MEQ/L (99-109); GFR ESTIMATE (CALCULATED) > 59 mL/min/; POTASSIUM 3.5 MEQ/L (3.7-5.4); SAMPLE HEMOLYSIS CHECK 0; SAMPLE ICTERIC CHECK 0; SAMPLE LIPEMIA CHECK 0; SODIUM 141 MEQ/L (136-147); UREA NITROGEN (BUN) 22 mg/dL (9-23)
[2017-02-07 10:02] LABS: GLUCOSE 85 mg/dL (70-99)
[2017-02-07 11:09] LABS: METH RESISTANT S AUREUS PCR POSITIVE (NEGATIVE)
[2017-02-07 11:10] LABS: PROBE CHECK PASS
[2017-02-07 12:02] VITALS: BP 159/96
[2017-02-07 16:08] VITALS: BP 159/96
[2017-02-07 20:00] VITALS: BP 167/90
[2017-02-08 04:00] VITALS: BP 135/83
[2017-02-08 07:48] VITALS: BP 161/108
[2017-02-08 12:10] VITALS: BP 140/90
[2017-02-08] MEDS ORDERED: FOLIC ACID1 MG PO (15:53)
[2017-02-08] MEDS ORDERED: Thiamine,Vitamin B1 PO (15:53)
[2017-02-09] MEDS ORDERED: CLONIDINE HCL0.1 MG PO (22:42)
== END 2017-02-08 17:45 | disposition home or self-care (01) ==
LOC: EME 21:21 → 5WEST 02-07 04:02 → EDOF 02-07 04:02 → ENRESERV 02-07 04:07 → 5WEST 02-07 04:55
PROVIDERS: Emergency Medicine; Hospitalist; Nurse Practitioner Adult Health
DX: E87.2 Acidosis (principal); F10.20 Alcohol dependence, uncomplicated; Y90.5 Blood alcohol level of 100-119 mg/100 ml; F32.9 Major depressive disorder, single episode, unspecified; G89.29 Other chronic pain; G62.9 Polyneuropathy, unspecified; Z86.711 Personal history of pulmonary embolism; Z86.718 Personal history of other venous thrombosis and embolism; R20.2 Paresthesia of skin; E53.8 Deficiency of other specified B group vitamins; E78.5 Hyperlipidemia, unspecified; R07.9 Chest pain, unspecified; E87.6 Hypokalemia; N17.9 Acute kidney failure, unspecified; Z79.01 Long term (current) use of anticoagulants; I10 Essential (primary) hypertension; K21.9 Gastro-esophageal reflux disease without esophagitis; J44.9 Chronic obstructive pulmonary disease, unspecified; R45.851 Suicidal ideations; F43.10 Post-traumatic stress disorder, unspecified; Z86.19 Personal history of other infectious and parasitic diseases; Z85.038 Personal history of other malignant neoplasm of large intestine; F17.200 Nicotine dependence, unspecified, uncomplicated; Z59.0 Homelessness
CPT/HCPCS: 80048; 80048 91; 80076; 83735; 85027; 87641; 99281; 99285; G0378; G0480; G8978 GP CJ; G8979 GP CH; G8987 GO CJ; G8988 GO CH; J3411; J3475; J7030

== ENCOUNTER 2017-02-08 23:25 | Emergency (ER) | payer OTHER ==
[~2017-02-08] VITALS: Ht 162.6 cm; Wt 57.0 kg
[2017-02-09 02:50] VITALS: BP 104/73
[2017-02-09] MEDS ORDERED: CLONIDINE HCL0.1 MG PO (22:42)
[2017-02-13] MEDS ORDERED: AMITRIPTYLINE H50 MG PO (08:53)
[2017-02-13] MEDS ORDERED: NEURONTIN600 MG PO (08:53)
[2017-02-13] MEDS ORDERED: CLONIDINE HCL0.1 MG PO (08:53)
[2017-02-13] MEDS ORDERED: AMITRIPTYLINE100 MG PO (08:53)
[2017-02-13] MEDS ORDERED: PRISTIQ100 MG PO (08:53)
[2017-02-13] MEDS ORDERED: XARELTO20 MG PO (08:53)
[2017-02-13] MEDS ORDERED: KETOROLAC TROME10 MG PO (08:53)
[2017-02-13] MEDS ORDERED: Thiamine,Vitamin B1 PO (08:54)
[2017-02-13] MEDS ORDERED: FOLIC ACID1 MG PO (08:54)
== END 2017-02-09 03:02 | disposition home or self-care (01) ==
LOC: EME 23:25
DX: F10.129 Alcohol abuse with intoxication, unspecified (principal); E78.5 Hyperlipidemia, unspecified; I10 Essential (primary) hypertension; F41.9 Anxiety disorder, unspecified; F17.200 Nicotine dependence, unspecified, uncomplicated; Z85.038 Personal history of other malignant neoplasm of large intestine
CPT/HCPCS: 99281; 99284

== ENCOUNTER 2017-02-19 10:18 | Inpatient (IN) | payer OTHER ==
[~2017-02-19] VITALS: Ht 170.2 cm; Wt 71.0 kg
[~2017-02-19 10:18] MED LIST changes: +KETOROLAC TROME10 MG PO
[2017-02-19 11:33] LABS: BASOPHIL COUNT 0.1 K/uL (0-0.1); EOSINOPHIL (%) 2.1 % (0-5); EOSINOPHIL COUNT 0.1 K/uL (0-0.3); HEMATOCRIT 33.9 % (38.0-50.0); IMMATURE GRANULOCYTE (%) 0.3 % (0.0-0.7); INSTRUMENT ABS NEUTROPHIL CT 4.9 K/uL; LYMPHOCYTE COUNT 0.9 K/uL (1.0-2.8); MCH 29.5 PG (29.0-34.0); MCHC 31.6 G/DL (30.0-36.0); MCV 93.4 FL (86-99); MONOCYTE (%) 7.8 % (3-12); MONOCYTE COUNT 0.5 K/uL (0-0.8); NEUTROPHIL (%) 74.8 % (45-76); NEUTROPHIL COUNT 4.9 K/uL (1.8-6.4); PLATELET COUNT 224 K/uL (156-360); RBC DIS.WIDTH-CV 16.4 % (11.8-14.6); RED BLOOD COUNT 3.63 M/uL (4.00-5.50); WHITE BLOOD COUNT 6.6 K/uL (4.1-10.2)
[2017-02-19 11:40] LABS: INTER. NORMALIZED RATIO 1.1; PROTHROMBIN TIME 12.8 SEC (10.2-12.9)
[2017-02-19 11:43] LABS: PTT 30.3 SEC (25-37)
[2017-02-19 11:46] LABS: CHLORIDE 108 mEq/L (99-109); SODIUM 141 mEq/L (136-147)
[2017-02-19 11:49] LABS: GLUCOSE 95 mg/dL (70-99)
[2017-02-19 11:50] LABS: ANION GAP 9 MEQ/L (2-14)
[2017-02-19 11:51] LABS: TOTAL BILIRUBIN 0.3 mg/dL (0.0-1.0)
[2017-02-19 11:52] LABS: ALKALINE PHOSPHATASE 80 IU/L (3-129); SERUM ETHYL ALCOHOL < 10 mg/dL
[2017-02-19 11:53] LABS: GFR ESTIMATE (CALCULATED) > 59 mL/min/
[2017-02-19 11:54] LABS: TROP-I INTERPRETATION NEGATIVE; TROPONIN-I < 0.01 ng/mL (0.0-0.30); UREA NITROGEN (BUN) 18 mg/dL (9-23)
[2017-02-19 11:56] LABS: CREATINE KINASE 852 IU/L (1-294); TOTAL CK 852 IU/L (1-294)
[2017-02-19 12:02] LABS: CK-MB 7.7 ng/mL (0.0-4.9)
[2017-02-19 12:43] LABS: AMPHETAMINE NEGATIVE (500 ng/mL); BENZODIAZEPINES PRESUMPTIVE POSITIVE (150 ng/mL); COCAINE NEGATIVE (150 ng/mL); METHAMPHETAMINE NEGATIVE (500 ng/mL); OPIATES (MORPHINE) NEGATIVE (100 ng/mL); PHENCYCLIDINE NEGATIVE (25 ng/mL); THC CANNABINOIDS NEGATIVE (50 ng/mL); TRICYCLIC ANTIDEPRESSANTS PRESUMPTIVE POSITIVE (300 ng/mL)
[2017-02-19 12:44] LABS: ADD MEDTOX COMMENT Y; BARBITURATES NEGATIVE (200 ng/mL); INTERNAL CONTROLS VALID? YES; METHADONE NEGATIVE (200 ng/mL); OXYCODONE NEGATIVE (100 ng/mL); PROPOXYPHENE NEGATIVE (300 ng/mL)
[2017-02-19 13:13] LABS: BENZODIAZEPINES, URINE SCREEN POSITIVE (200 ng/mL)
[2017-02-19] MEDS ORDERED: AMITRIPTYLINE H50 MG PO (14:19)
[2017-02-19] MEDS ORDERED: THIAMINE HCL100 MG PO (14:20)
[2017-02-19 15:31] VITALS: BP 158/95
[2017-02-19 15:42] VITALS: BP 158/95
[2017-02-19 18:59] VITALS: BP 132/89
[2017-02-20] VITALS (8 sets, daily range): BP systolic 128–187; BP diastolic 82–110
[2017-02-20 00:36] LABS: METH RESISTANT S AUREUS PCR POSITIVE (NEGATIVE)
[2017-02-20 00:40] LABS: PROBE CHECK PASS
[2017-02-20 06:51] LABS: ANION GAP 11 MEQ/L (2-14); CHLORIDE 109 MEQ/L (99-109); CREATINE KINASE 313 IU/L (1-294); GFR ESTIMATE (CALCULATED) > 59 mL/min/; GLUCOSE 73 mg/dL (70-99); POTASSIUM 3.6 MEQ/L (3.7-5.4); SAMPLE HEMOLYSIS CHECK 0; SAMPLE ICTERIC CHECK 0; SAMPLE LIPEMIA CHECK 0; SODIUM 142 MEQ/L (136-147); UREA NITROGEN (BUN) 13 mg/dL (9-23)
[2017-02-21 04:50] VITALS: BP 162/100
[2017-02-21 05:46] LABS: HEMATOCRIT 34.2 % (38.0-50.0); MCH 30.5 PG (29.0-34.0); MCV 92.4 FL (86-99); MEAN PLAT.VOLUME 11.3 uM^3 (9.0-12.4); PLATELET COUNT 219 K/uL (156-360); RBC DIS.WIDTH-CV 16.1 % (11.8-14.6); RBC DIS.WIDTH-SD 54.7 % (39-53); WHITE BLOOD COUNT 6.9 K/uL (4.1-10.2)
[2017-02-21 06:04] LABS: ANION GAP 9 MEQ/L (2-14); CHLORIDE 108 MEQ/L (99-109); GFR ESTIMATE (CALCULATED) > 59 mL/min/; GLUCOSE 106 mg/dL (70-99); MAGNESIUM 1.8 mg/dl (1.3-2.7); POTASSIUM 3.8 MEQ/L (3.7-5.4); SAMPLE HEMOLYSIS CHECK 0; SAMPLE ICTERIC CHECK 0; SAMPLE LIPEMIA CHECK 0; SODIUM 141 MEQ/L (136-147); UREA NITROGEN (BUN) 8 mg/dL (9-23)
[2017-02-21 08:35] VITALS: BP 130/82
[2017-02-21 16:30] VITALS: BP 136/24
[2017-02-21 20:01] VITALS: BP 182/97
[2017-02-21 23:29] VITALS: BP 143/98
[2017-02-22 08:34] VITALS: BP 148/98
[2017-02-22 12:31] VITALS: BP 138/86
[2017-02-22 16:35] VITALS: BP 138/86
[2017-02-22 19:38] VITALS: BP 148/86
[2017-02-22 23:21] VITALS: BP 130/81
[2017-02-23 03:35] VITALS: BP 123/75
[2017-02-23 07:16] LABS: ANION GAP 7 MEQ/L (2-14); CHLORIDE 108 MEQ/L (99-109); GFR ESTIMATE (CALCULATED) > 59 mL/min/; GLUCOSE 105 mg/dL (70-99); SAMPLE HEMOLYSIS CHECK 0; SAMPLE ICTERIC CHECK 0; SAMPLE LIPEMIA CHECK 0; SODIUM 140 MEQ/L (136-147); UREA NITROGEN (BUN) 11 mg/dL (9-23)
[2017-02-23 11:16] VITALS: BP 109/70
[2017-02-23 16:30] VITALS: BP 136/78
[2017-02-23 23:23] VITALS: BP 123/69
[2017-02-24 06:43] LABS: ANION GAP 8 MEQ/L (2-14); CHLORIDE 104 MEQ/L (99-109); GFR ESTIMATE (CALCULATED) > 59 mL/min/; GLUCOSE 94 mg/dL (70-99); POTASSIUM 4.2 MEQ/L (3.7-5.4); SAMPLE HEMOLYSIS CHECK 0; SAMPLE ICTERIC CHECK 0; SAMPLE LIPEMIA CHECK 0; SODIUM 139 MEQ/L (136-147); UREA NITROGEN (BUN) 13 mg/dL (9-23)
[2017-02-24 08:18] VITALS: BP 105/68
[2017-02-24 17:45] VITALS: BP 135/86
[2017-02-25] VITALS: BP 112/68
[2017-02-25 04:15] VITALS: BP 116/61
[2017-02-25 07:41] VITALS: BP 101/70
[2017-02-25 11:23] VITALS: BP 102/62
[2017-02-25] MEDS ORDERED: NICOTINE PATCH1 EAC2 TD (12:06)
[2017-02-25] MEDS ORDERED: THERAGRAN1 TABLET PO (12:06)
== END 2017-02-25 15:58 | DRG 57 ==
LOC: EME 10:18 → 3EAST 12:30 → EDOF 12:30 → 4EAST 12:30 → ENRESERV 12:31 → EDOF 13:31 → 4EAST 14:49 → ENRESERV 02-20 11:37 → 3EAST 02-20 13:00
PROVIDERS: Emergency Medicine; Hospitalist; Internal Medicine
PROC: HZ2ZZZZ Detoxification Services for Substance Abuse Treatment (ICD-10-PCS; principal; 2017-02-19)
DX: G31.2 Degeneration of nervous system due to alcohol (principal); F10.239 Alcohol dependence with withdrawal, unspecified; M62.82 Rhabdomyolysis; E53.8 Deficiency of other specified B group vitamins; D64.9 Anemia, unspecified; G40.909 Epilepsy, unspecified, not intractable, without status epilepticus; I10 Essential (primary) hypertension; K21.9 Gastro-esophageal reflux disease without esophagitis; E78.5 Hyperlipidemia, unspecified; G43.909 Migraine, unspecified, not intractable, without status migrainosus; F43.10 Post-traumatic stress disorder, unspecified; F31.9 Bipolar disorder, unspecified; F13.10 Sedative, hypnotic or anxiolytic abuse, uncomplicated; F17.210 Nicotine dependence, cigarettes, uncomplicated; Z85.038 Personal history of other malignant neoplasm of large intestine; Z86.711 Personal history of pulmonary embolism; Z90.49 Acquired absence of other specified parts of digestive tract; Z91.14 Patient's other noncompliance with medication regimen; Z79.01 Long term (current) use of anticoagulants; Z22.322 Carrier or suspected carrier of Methicillin resistant Staphylococcus aureus
CPT/HCPCS: 70450; 71010; 80048; 80053; 82140; 82550; 82553; 82607; 83735; 84100; 84484; 84999; 85025; 85027; 85610; 85730; 87641; 93005; 97530 GP; 99281; 99285; G0480; J1650; J2060; J2405; J3411; J7030; J7120; S0028